=== PATIENT | female | born 1945 | race Caucasian/White ===

== ENCOUNTER 2019-09-23 14:20 | Outpatient (CLI) | payer OTHER, SELFPAY ==
[2019-09-23 14:36] LABS: Basophils Absolute Auto 0.1 K/mm3 (0.0-0.1); Basophils Percent Auto 0.9 % (0.2-1.2); Eosinophils Absolute Auto 0.5 K/mm3 (0-0.3); Eosinophils Percent Auto 7.7 % (0-4.4); Hematocrit 47.9 % (37.0-47.0); Hemoglobin 15.7 g/dL (12.0-15.0); Immature Granulocyte Absolute 0.04 K/mm3 (0.00-0.031); Immature Granulocyte Percent A 0.6 % (0-0.5); Lymphocytes Absolute Auto 1.81 K/mm3 (0.9-3.2); Lymphocytes Percent Auto 27.7 % (18.3-44.2); Mean Corpuscular HGB Conc 32.8 g/dl (32-36); Mean Corpuscular Hemoglobin 32.6 pg (26-34); Mean Corpuscular Volume 99.4 fl (80-100); Mean Platelet Volume 10.3 fl (7.4-10.4); Monocytes Absolute Auto 0.4 K/mm3 (0.1-0.6); Monocytes Percent Auto 6.6 % (2.6-8.5); Neutrophils Absolute Auto 3.7 K/mm3 (1.3-6.7); Neutrophils Percent Auto 56.5 % (45.5-73.1); Platelet Count Result 140 k/mm3 (150-375); Red Blood Count 4.82 M/mm3 (4.2-5.4); Red Cell Distribution Width 14.1 % (11.5-14.5); White Blood Count 6.5 K/mm3 (4.5-10.0)
[2019-09-23 16:36] LABS: Iron 112 ug/dL (37-170)
[2019-09-23 16:40] LABS: Alanine Aminotransferase 25 U/L (4-35); Albumin Level 3.8 g/dL (3.5-5.1); Alkaline Phosphatase 360 U/L (38-126); Aspartate Amino Transferase 41 U/L (14-36); Bilirubin,Total 1.3 mg/dL (0.2-1.3); Blood Urea Nitrogen 9 mg/dL (7-17); Calcium 9.2 mg/dL (8.4-10.2); Carbon Dioxide 25 mmol/L (22-30); Chloride 101 mmol/L (98-107); Estimated Glomerular Filt Rate > 60; Glucose 239 mg/dL (65-105); Sodium 139 mmol/L (137-145)
[2019-09-23 16:51] LABS: Percent Iron Saturation 30 % (20-50)
[2019-09-23 17:50] LABS: Folic Acid 8.1 ng/mL (2.76->20); Vitamin B12 > 1000.0 pg/mL (239-931)
== END 2019-09-23 14:21 | disposition home or self-care (01) ==
LOC: ANHLAB 14:21
PROVIDERS: PCP Internal Medicine; Visit Provider Internal Medicine Hematology & Oncology
DX: D63.8 Anemia in other chronic diseases classified elsewhere (principal)
CPT/HCPCS: 36415; 80053; 82607; 82728; 82746; 83540; 83550; 84443; 85025

== ENCOUNTER 2020-05-08 20:10 | Emergency (ER) | payer OTHER, SELFPAY ==
--- NOTE | ~2020-05-08 | XR_ITS ---
XR chest 2V DATE: 05/08/2020 21:16 INDICATION: Low-grade fever TECHNIQUE: PA and lateral views COMPARISON: 06/09/2019 portable AP chest FINDINGS: Heart size is borderline. No hilar or mediastinal enlargement. No pulmonary infiltrate or c onsolidation, pleural effusion or pulmonary vascular congestion or pneumothorax. There are multiple surgical clips overlie either side of the diaphragmatic hiatus. There is asymmetric widening of the right acromioclavicular joint. There is scoliosis of the thoracic and lumbar spine. There is moderate loss of height and anterior we dging of a thoracolumbar vertebra, approximately T12. There is diffuse osteopenia. IMPRESSION: No active pulmonary disease Reviewed, dictated and finalized at location [facility]. IMPRESSION: No active pulmonary disease
[2020-05-08 20:14] VITALS: BP 163/78; PULSE 72; RESP 20; TEMP 36.2; O2SAT 95
--- NOTE | 2020-05-08 20:29 | ED.FEMALEGU ---
HPI - Female Genitourinary General Chief complaint: Urogenital-Female Stated complaint: fever, uti?? Time Seen by Provider: 05/08/20 20:28 Source: patient Mode of arrival: ambulatory Limitations: no limitations History of Present Illness HPI Narrative: Patient is a 74-year-old female with a history of recurrent urinary tract infection, bladder stimulator who presents for evaluation of low-grade fever. Patient states that she has been feeling unwell since she had the influenza vaccine 6 days prior at her primary care physician's office. Patient states her low-grade fevers have been around 100 Fahrenheit consistently over the past 5 days. She reports mild cough, rhinorrhea that she attributes to seasonal allergies. Patient states she had a negative COVID swab ordered by her primary care physician on . Patient denies any belly pain, nausea, vomiting or diarrhea. She denies rashes. She does report some frequency of urination, she denies dysuria or flank pain. Related Data Home Medications Medication Instructions Recorded Confirmed blood sugar diagnostic #10 each 06/17/19 01/12/20 carbidopa 25 mg-levodopa 100 mg 1 tablet PO TID 06/17/19 01/12/20 tablet lancets 26 gauge #100 each 06/17/19 01/12/20 nystatin 100,000 unit/gram topical 1 applic TOPICAL DAILY 06/17/19 01/12/20 cream ascorbic acid (vitamin C) 500 mg 500 mg PO DAILY 09/17/19 01/12/20 tablet aspirin 325 mg tablet 325 mg PO BID 09/17/19 01/12/20 ferrous sulfate 325 mg (65 mg 325 mg PO BID 09/17/19 01/12/20 iron) tablet mecobalamin (vitamin B12) 5,000 mcg PO 09/17/19 01/12/20 mcg disintegrating tablet Allergies Allergy/AdvReac Type Severity Reaction Status Date / Time clavulanic acid Allergy Intermediate RASH Verified 02/28/19 15:07 amoxicillin Allergy Unknown Verified 09/20/16 10:40 latex Allergy Unknown Verified 09/20/16 10:40 Sulfa (Sulfonamide Allergy Unknown Verified 09/20/16 10:40 Antibiotics) vitamin A Allergy Unknown eyes swell Verified 02/28/19 15:07 Review of Systems Review of Systems: Narrative: CONSTITUTIONAL: Reports fever ENT: Reports rhinorrhea and congestion CARDIOVASCULAR: Denies chest pain, palpitations, or edema. RESPIRATORY: Denies cough or dyspnea. GASTROINTESTINAL: Denies abdominal pain, nausea, vomiting, or diarrhea. GENITOURINARY: Denies dysuria or hematuria. Reports urinary frequency. SKIN: Denies rash or itching. MUSCULOSKELETAL: Denies back pain, joint pain, or myalgia. NEUROLOGIC: Denies headache, numbness, or weakness. [facility] Past Medical History Medical History (Updated 05/08/20 @ 22:16 by Rosie Donald MD) Anemia Bilateral primary osteoarthritis of knee Diabetes Hypertension Hypothyroidism Pancytopenia Stroke, hemorrhagic Surgical History Surgical History H/O rotator cuff surgery (~10/2009) Right H/O: hysterectomy History of partial gastrectomy History of tonsillectomy (~1950) Status post closed fracture of right femur (~1982) treated with femoral cruzito at [place] Family History Family History Sibling Family history of bipolar disorder Mother Family history of hypothyroidism Father Family history of hypothyroidism Other Cerebrovascular accident Depression Diabetes mellitus Family history of alcoholism Family history of arthritis Family history of attention deficit hyperactivity disorder (ADHD) Family history of blood dyscrasia Family history of congestive heart failure Family history of thyroid disease Social History Social History Smoking status: Never smoker Second hand tobacco smoke exposure: No Alcohol intake: never Additional living arrangements comments: Exam Narrative: Exam Narrative: GENERAL: Awake, alert, conversant HEAD: Normocephalic, atraumatic. EYES: PERRLA and E
[2020-05-08 20:56] LABS: Add Urine Microscopic? YES; Amorphous Sediment Urine Few; Appearance Urine Cloudy (Clear); Bacteria Urine 2+ /hpf; Bilirubin Urine Negative (Negative); Color Urine Amber (Yellow); Glucose Urine UA 1+ mg/dL (Negative); Ketones Urine Trace mg/dL (Negative); Leukocyte Esterase Ur 1+ LEU/UL (Negative); Mucus Urine Heavy /lpf; Nitrate Urine Positive (Negative); Protein Urine 1+ mg/dL (Negative); Squamous Epithelial Cell Urine Moderate /hpf (Few); WBC Urine >75 /hpf
[2020-05-08 20:57] LABS: Blood Urine Negative (Negative)
[2020-05-08 21:56] LABS: Alanine Aminotransferase 30 U/L (4-35); Albumin Level 3.8 g/dL (3.5-5.1); Alkaline Phosphatase 241 U/L (38-126); Anion Gap 10 mmol/L (8-16); Aspartate Amino Transferase 52 U/L (14-36); Bilirubin,Total 1.8 mg/dL (0.2-1.3); Blood Urea Nitrogen 10 mg/dL (7-17); Calcium 9.2 mg/dL (8.4-10.2); Carbon Dioxide 24 mmol/L (22-30); Chloride 105 mmol/L (98-107); Estimated Glomerular Filt Rate > 60; Glucose 247 mg/dL (65-105); Potassium 4.1 mmol/L (3.4-5.0); Sodium 139 mmol/L (137-145)
[2020-05-08 22:10] VITALS: BP 169/60; PULSE 66; RESP 17; O2SAT 95
[2020-05-08 22:29] VITALS: BP 179/67; PULSE 66; RESP 18; TEMP 36.7; O2SAT 95
== END 2020-05-08 22:31 | disposition home or self-care (01) ==
PROVIDERS: Emergency Medicine; Emergency Provider Emergency Medicine; PCP Internal Medicine
DX: N39.0 Urinary tract infection, site not specified (principal); Z79.82 Long term (current) use of aspirin; D64.9 Anemia, unspecified; M17.10 Unilateral primary osteoarthritis, unspecified knee; E11.9 Type 2 diabetes mellitus without complications; I10 Essential (primary) hypertension; E03.9 Hypothyroidism, unspecified; Z86.73 Personal history of transient ischemic attack (TIA), and cerebral infarction without residual deficits; Z90.3 Acquired absence of stomach [part of]
CPT/HCPCS: 36415; 71046; 80053; 81001; 87077; 87086; 87088; 87186; 99283

== ENCOUNTER 2020-06-28 17:00 | Outpatient (CLI) | payer OTHER, SELFPAY ==
[2020-06-28 17:50] LABS: Basophils Percent Auto 0.6 % (0.2-1.2); Eosinophils Absolute Auto 0.2 K/mm3 (0-0.3); Eosinophils Percent Auto 4.4 % (0-4.4); Hematocrit 46.5 % (37.0-47.0); Hemoglobin 16.4 g/dL (12.0-15.0); Immature Granulocyte Absolute 0.01 K/mm3 (0.00-0.031); Immature Granulocyte Percent A 0.2 % (0-0.5); Immature Platelet Fraction Pct 6.4 % (0.9-11.2); Lymphocytes Absolute Auto 1.77 K/mm3 (0.9-3.2); Lymphocytes Percent Auto 35.1 % (18.3-44.2); Mean Corpuscular HGB Conc 35.3 g/dl (32-36); Mean Corpuscular Hemoglobin 33.3 pg (26-34); Mean Corpuscular Volume 94.5 fl (80-100); Mean Platelet Volume 11.1 fl (7.4-10.4); Monocytes Absolute Auto 0.2 K/mm3 (0.1-0.6); Monocytes Percent Auto 4.8 % (2.6-8.5); Neutrophils Absolute Auto 2.8 K/mm3 (1.3-6.7); Neutrophils Percent Auto 54.9 % (45.5-73.1); Platelet Count Result 77 k/mm3 (150-375); Red Blood Count 4.92 M/mm3 (4.2-5.4); Red Cell Distribution Width 12.3 % (11.5-14.5)
[2020-06-28 18:00] LABS: Anion Gap 5 mmol/L (8-16); Blood Urea Nitrogen 5 mg/dL (7-17); Calcium 8.8 mg/dL (8.4-10.2); Carbon Dioxide 28 mmol/L (22-30); Chloride 103 mmol/L (98-107); Estimated Glomerular Filt Rate > 60; Glucose 345 mg/dL (65-105); Potassium 3.9 mmol/L (3.4-5.0); Sodium 136 mmol/L (137-145)
[2020-06-28 18:44] LABS: Iron 137 ug/dL (37-170)
[2020-06-28 18:53] LABS: Percent Iron Saturation 46 % (20-50)
[2020-06-28 19:09] LABS: Folic Acid 7.2 ng/mL (2.76->20); Vitamin B12 > 1000.0 pg/mL (239-931)
== END 2020-06-28 17:01 | disposition home or self-care (01) ==
PROVIDERS: PCP Internal Medicine; Visit Provider Internal Medicine Hematology & Oncology
DX: D50.9 Iron deficiency anemia, unspecified (principal); D61.818 Other pancytopenia
CPT/HCPCS: 36415; 80048; 82607; 82728; 82746; 83540; 83550; 85025; 85055

== ENCOUNTER 2020-08-23 11:07 | Emergency (ER) | payer OTHER, SELFPAY ==
--- NOTE | ~2020-08-23 | XR_ITS ---
XR shoulder RT min 2V DATE: 08/23/2020 11:37 INDICATION: Fall. Right shoulder pain TECHNIQUE: 3 views COMPARISON: 01/19/2017 right shoulder FINDINGS: There is comminuted fracture the proximal right humerus including fracture of the greater t uberosity and transverse surgical neck fracture. Diffuse osteopenia. There is chronic widening at the right acromioclavicular joint. No dislocation at the glenohumeral prema int. IMPRESSION: Comminuted proximal right humeral fracture including fracture of the greater tuberosity a nd transverse surgical neck fracture Osteopenia Reviewed, dictated and finalized at location A. [employer] IMPRESSION: Comminuted proximal right humeral fracture including fracture of th e greater tuberosity and transverse surgical neck fracture Osteopenia
[2020-08-23 11:09] VITALS: BP 148/96; PULSE 78; RESP 16; TEMP 37; O2SAT 96
--- NOTE | 2020-08-23 11:15 | PC.NURSE ---
patient here after ground level fall. see initial notes. alert. oriented. denies head injury. denies LOC. just missed a step. assessments documented.
--- NOTE | 2020-08-23 11:43 | ED.UPPEXIN ---
HPI - Extremity Injury (Upper) General Chief Complaint: Extremity Injury, Upper Stated Complaint: R shoulder pain after fall Time Seen by Provider: 08/23/20 11:08 History of Present Illness HPI narrative: 74 yo female presents to the ED for a shoulder injury. SHe tripped over a small step and fell forward onto outstretched right hand. She had instatn and severe pain in her right shoulder. She is not able to to move that shoulder. the pain radiates down past the elbow. Distal motor and sensory intact. She had previous rotator cuff repair on that shoulder 12 years ago. She does not believe that she hit her head. No new neck pain, back pain, hip pain. No LOC, weakness, numbness confusion. Related Data Home Medications Medication Instructions Recorded Confirmed blood sugar diagnostic #10 each 06/17/19 07/07/20 lancets 26 gauge #100 each 06/17/19 07/07/20 ascorbic acid (vitamin C) 500 mg 500 mg PO DAILY 09/17/19 07/07/20 tablet ferrous sulfate 325 mg (65 mg 325 mg PO BID 09/17/19 07/07/20 iron) tablet Allergies Allergy/AdvReac Type Severity Reaction Status Date / Time clavulanic acid Allergy Intermediate RASH Verified 02/28/19 15:07 amoxicillin Allergy Unknown Verified 09/20/16 10:40 latex Allergy Unknown Verified 09/20/16 10:40 Sulfa (Sulfonamide Allergy Unknown Verified 09/20/16 10:40 Antibiotics) vitamin A Allergy Unknown eyes swell Verified 02/28/19 15:07 Review of Systems Review of Systems: All systems reviewed & are unremarkable except as noted in HPI and below Constitutional: Constitutional: Denies fever(s) and Denies weakness ENT: Denies dizziness Cardiovascular: Cardiovascular: Denies chest pain Respiratory: Respiratory: Denies dyspnea Gastrointestinal: Gastrointestinal: Denies nausea and Denies vomiting Genitourinary: Genitourinary: Denies dysuria Musculoskeletal: Musculoskeletal: Reports back pain Neurologic: Denies confusion, Denies dizziness and Denies weakness Hematologic/Lymphatic: Hematologic/Lymphatic: Denies easy bleeding PMFSH Past Medical History Medical History Anemia Bilateral primary osteoarthritis of knee Diabetes Hypertension Hypothyroidism Pancytopenia Stroke, hemorrhagic Surgical History Surgical History H/O rotator cuff surgery (~10/2009) Right H/O: hysterectomy History of partial gastrectomy History of tonsillectomy (~1950) Status post closed fracture of right femur (~1982) treated with femoral cruzito at [place] Family History Family History Sibling Family history of bipolar disorder Mother Family history of hypothyroidism Father Family history of hypothyroidism Other Cerebrovascular accident Depression Diabetes mellitus Family history of alcoholism Family history of arthritis Family history of attention deficit hyperactivity disorder (ADHD) Family history of blood dyscrasia Family history of congestive heart failure Family history of thyroid disease Social History Social History Smoking status: Never smoker Second hand tobacco smoke exposure: No Alcohol intake: never Additional living arrangements comments: Exam Const: General: healthy appearing, no acute distress and alert Orientation/consciousness: patient oriented x3 HENMT: Head: normal to inspection, no contusions and no lacerations Eyes: Pupils: Equal, round and reactive pupils present EOM: EOMs intact bilaterally Neck: Neck: normal visual inspection Chest: Chest palpation & inspection: no tenderness Resp: Effort & Inspection: normal respiratory effort Auscultation: clear to auscultation bilaterally Cardio: Rate: regular rate Rhythm: regular rhythm Skin: General skin exam: normal color Wounds: no wounds Neuro: Gener
[2020-08-23] MEDS: HYDROcodone/acetaminophen (*CRX) 5-325 MG TABLET 2 TAB PO (12:10)
--- NOTE | 2020-08-23 12:17 | PC.NURSE ---
patient medicated for pain as ordered. reviewed current orders with patient and friend in the room. patient needs a new shirt. also has order for shoulder immobilizer. will wait for pain med to start working.
[2020-08-23 12:43] VITALS: BP 146/53; PULSE 72; RESP 16; O2SAT 96
== END 2020-08-23 12:49 | disposition home or self-care (01) ==
PROVIDERS: Emergency Provider Emergency Medicine; PCP Internal Medicine
DX: S42.251A Displaced fracture of greater tuberosity of right humerus, initial encounter for closed fracture (principal); S42.211A Unspecified displaced fracture of surgical neck of right humerus, initial encounter for closed fracture; D64.9 Anemia, unspecified; M17.0 Bilateral primary osteoarthritis of knee; E11.9 Type 2 diabetes mellitus without complications; I10 Essential (primary) hypertension; E03.9 Hypothyroidism, unspecified; Z86.73 Personal history of transient ischemic attack (TIA), and cerebral infarction without residual deficits; Z79.4 Long term (current) use of insulin; M85.811 Other specified disorders of bone density and structure, right shoulder; W18.09XA Striking against other object with subsequent fall, initial encounter
CPT/HCPCS: 73030; 99284; A9270

== ENCOUNTER 2020-09-23 15:08 | Outpatient (CLI) | payer OTHER, MEDICARE, SELFPAY | END 2020-09-23 15:09 | disposition home or self-care (01) | LOC: ANHCOVIDVC 15:08 | PROVIDERS: PCP Internal Medicine | DX: Z23 Encounter for immunization (principal) | CPT/HCPCS: 0001A; 91300 ==

== ENCOUNTER 2020-09-26 22:19 | Emergency (ER) | payer OTHER, SELFPAY ==
[2020-09-26 22:22] VITALS: BP 142/53; PULSE 69; RESP 20; TEMP 36.8; O2SAT 97
[2020-09-26 23:05] LABS: Lactic Acid Reflex 3.2 mmol/L (0.7-2.1)
--- NOTE | 2020-09-26 23:58 | ED.EXTPRO ---
HPI - Extremity Problem General Chief complaint: Extremity Problem,Nontraumatic Stated complaint: R arm redness/ swelling Time Seen by Provider: 09/26/20 23:35 History of Present Illness HPI Narrative: Redenss and swelling to the right upper arm for the past 2 days. She broken proximal humerus 1 month ago and she has had her arm in an immobilizer. The redness developed in the area where it makes contact with her skin. The rash is painful and also itches. SHe does have some minor scratches to the area, no significant wounds. She has tried OTC allergy treatments without any improvement. No fever, weakness, numbness, CP, SOB. Related Data Home Medications Medication Instructions Recorded Confirmed blood sugar diagnostic #10 each 06/17/19 07/07/20 lancets 26 gauge #100 each 06/17/19 07/07/20 ascorbic acid (vitamin C) 500 mg 500 mg PO DAILY 09/17/19 07/07/20 tablet ferrous sulfate 325 mg (65 mg 325 mg PO BID 09/17/19 07/07/20 iron) tablet Allergies Allergy/AdvReac Type Severity Reaction Status Date / Time clavulanic acid Allergy Intermediate RASH Verified 02/28/19 15:07 amoxicillin Allergy Unknown Verified 09/20/16 10:40 latex Allergy Unknown Verified 09/20/16 10:40 Sulfa (Sulfonamide Allergy Unknown Verified 09/20/16 10:40 Antibiotics) vitamin A Allergy Unknown eyes swell Verified 02/28/19 15:07 Review of Systems Review of Systems: All systems reviewed & are unremarkable except as noted in HPI and below Constitutional: Constitutional: Denies chills and Denies fever(s) Eyes: Eyes: Reports no additional eye complaints ENT: Reports system reviewed and no additional complaints, except as documented Cardiovascular: Cardiovascular: Denies chest pain Respiratory: Respiratory: Denies dyspnea Gastrointestinal: Gastrointestinal: Denies abdominal pain, Denies nausea and Denies vomiting Genitourinary: Genitourinary: Reports no additional female genitourinary complaints Musculoskeletal: Musculoskeletal: Denies back pain Integumentary/Breasts: Skin/Breast: Reports pruritus, Reports erythema and Reports rash Neurologic: Denies confusion, Denies dizziness and Denies weakness PMF Past Medical History Medical History (Updated 09/28/20 @ 00:00 by Background Daemon) Anemia Bilateral primary osteoarthritis of knee Diabetes Hypertension Hypothyroidism Pancytopenia Stroke, hemorrhagic Surgical History Surgical History H/O rotator cuff surgery (~10/2009) Right H/O: hysterectomy History of partial gastrectomy History of tonsillectomy (~1950) Status post closed fracture of right femur (~1982) treated with femoral cruzito at [place] Family History Family History Sibling Family history of bipolar disorder Mother Family history of hypothyroidism Father Family history of hypothyroidism Other Cerebrovascular accident Depression Diabetes mellitus Family history of alcoholism Family history of arthritis Family history of attention deficit hyperactivity disorder (ADHD) Family history of blood dyscrasia Family history of congestive heart failure Family history of thyroid disease Social History Social History Smoking status: Never smoker Second hand tobacco smoke exposure: No Alcohol intake: never Additional living arrangements comments: Gender identity (if verbalized by the patient): Female Exam Const: General: no acute distress and alert Orientation/consciousness: patient oriented x3 HENMT: Head: normal to inspection Neck: Neck: normal visual inspection Chest: Chest palpation & inspection: normal inspection of the chest Resp: Effort & Inspection: normal respiratory effort Auscultation: clear to auscultation bilaterally Cardio: Rate: regular rate Rhythm: regular rhythm Skin: Other: Erythem
[2020-09-27 00:21] LABS: Basophils Absolute Auto 0.1 K/mm3 (0.0-0.1); Basophils Percent Auto 0.9 % (0.2-1.2); Eosinophils Absolute Auto 0.6 K/mm3 (0-0.3); Eosinophils Percent Auto 11.6 % (0-4.4); Hematocrit 47.2 % (37.0-47.0); Immature Granulocyte Absolute 0.01 K/mm3 (0.00-0.031); Immature Granulocyte Percent A 0.2 % (0-0.5); Immature Platelet Fraction Pct 8.1 % (0.9-11.2); Lymphocytes Absolute Auto 1.69 K/mm3 (0.9-3.2); Lymphocytes Percent Auto 30.6 % (18.3-44.2); Mean Corpuscular HGB Conc 33.9 g/dl (32-36); Mean Corpuscular Hemoglobin 34.2 pg (26-34); Mean Corpuscular Volume 100.9 fl (80-100); Mean Platelet Volume 11.6 fl (7.4-10.4); Monocytes Absolute Auto 0.4 K/mm3 (0.1-0.6); Monocytes Percent Auto 7.1 % (2.6-8.5); Neutrophils Absolute Auto 2.7 K/mm3 (1.3-6.7); Neutrophils Percent Auto 49.6 % (45.5-73.1); Platelet Count Result 73 k/mm3 (150-375); Red Blood Count 4.68 M/mm3 (4.2-5.4); Red Cell Distribution Width 12.6 % (11.5-14.5); White Blood Count 5.5 K/mm3 (4.5-10.0)
[2020-09-27] MEDS: DOXYCYCLINE HYCLATE 100 MG TABLET PO (01:08)
[2020-09-27 01:14] LABS: Alanine Aminotransferase 21 U/L (4-35); Albumin Level 2.8 g/dL (3.5-5.1); Alkaline Phosphatase 201 U/L (38-126); Anion Gap 7 mmol/L (8-16); Aspartate Amino Transferase 54 U/L (14-36); Blood Urea Nitrogen 8 mg/dL (7-17); Calcium 8.7 mg/dL (8.4-10.2); Carbon Dioxide 24 mmol/L (22-30); Chloride 104 mmol/L (98-107); Estimated CRCL calculation 120 ml/min; Estimated Glomerular Filt Rate > 60; Glucose 283 mg/dL (65-105); Potassium 4.4 mmol/L (3.4-5.0); Sodium 135 mmol/L (137-145)
[2020-09-27 01:36] VITALS: BP 139/73; PULSE 73; RESP 16; O2SAT 96
[2020-09-27 01:49] LABS: Reflex Lactic Acid Yes or No Add Lactic
== END 2020-09-27 01:39 | disposition home or self-care (01) ==
PROVIDERS: Emergency Provider Emergency Medicine; PCP Internal Medicine
DX: L03.113 Cellulitis of right upper limb (principal); D64.9 Anemia, unspecified; M17.0 Bilateral primary osteoarthritis of knee; E11.9 Type 2 diabetes mellitus without complications; I10 Essential (primary) hypertension; E03.9 Hypothyroidism, unspecified; Z86.73 Personal history of transient ischemic attack (TIA), and cerebral infarction without residual deficits; Z90.3 Acquired absence of stomach [part of]
CPT/HCPCS: 36415; 80053; 83605; 85025; 85055; 87040; 99283; A9270

== ENCOUNTER 2020-10-14 15:10 | Outpatient (CLI) | payer OTHER, MEDICARE, SELFPAY | END 2020-10-14 15:11 | disposition home or self-care (01) | LOC: ANHCOVIDVC 15:10 | PROVIDERS: PCP Internal Medicine | DX: Z23 Encounter for immunization (principal) | CPT/HCPCS: 0002A; 91300 ==

== ENCOUNTER 2020-10-18 17:33 | Outpatient (CLI) | payer OTHER, SELFPAY ==
--- NOTE | ~2020-10-18 | XR_ITS ---
EXAMINATION: XR sacrum coccyx min 2V DATE: 10/18/2020 18:14 INDICATION: Overactive bladder. TECHNIQUE: 3 views of the sacrum and coccyx were obtained. COMPARISON: Sacrum and coccyx radiographs 04/10/2016 FINDINGS: Bone alignment is normal. No fracture. There is severe lumbar spondylosis. There is an elec trode in right S3 neural foramen. There is internal fixation of right femur. IMPRESSION: 1. Electrode in right S3 neural foramen. Reviewed, dictated and finalized at location A.
== END 2020-10-18 17:34 | disposition home or self-care (01) ==
PROVIDERS: PCP Internal Medicine; Visit Provider Nurse Practitioner Adult Health
DX: N32.81 Overactive bladder (principal); M47.816 Spondylosis without myelopathy or radiculopathy, lumbar region; Z96.9 Presence of functional implant, unspecified
CPT/HCPCS: 72220

== ENCOUNTER 2020-10-26 23:14 | Emergency (ER) | payer OTHER, SELFPAY ==
[2020-10-26 23:18] VITALS: BP 104/75; PULSE 78; RESP 18; TEMP 36.4; O2SAT 97
[2020-10-26] MEDS: PANTOPRAZOLE SODIUM IV 40 MG VIAL IV PUSH (23:54)
[2020-10-27 00:13] VITALS: BP 146/54; PULSE 73
[2020-10-27 00:16] VITALS: BP 166/67; PULSE 78
[2020-10-27 00:17] VITALS: BP 155/60; PULSE 90
[2020-10-27 00:33] VITALS: BP 141/50; PULSE 74; RESP 16; O2SAT 95
--- NOTE | 2020-10-27 01:00 | ED.NAVMDI ---
HPI - Nausea/Vomiting/Diarrhea General Chief complaint: Nausea/Vomiting/Diarrhea Stated complaint: throwing up blood x 15 Time Seen by Provider: 10/26/20 23:15 History of Present Illness HPI Narrative: Patient is a 74-year-old female who presents ER with nausea and vomiting. Patient has been having nausea for several weeks. She has been on antibiotics for cellulitis and for UTI. Apparently today patient began having emesis. Prior to coming in she had one episode where she vomited up some bright red blood. Is in a small quantity approximately a tablespoon or less. Prior to this she had had a small amount of dark emesis with the appearance of old blood. She denies coffee ground emesis throughout the day. Denies history of GI bleed. She is not on any blood thinners. No chest pain or chest pressure. She has not been taking her iron over the last couple weeks. Patient has been taking meloxicam. Related Data Home Medications Medication Instructions Recorded Confirmed blood sugar diagnostic #10 each 06/17/19 07/07/20 lancets 26 gauge #100 each 06/17/19 07/07/20 ascorbic acid (vitamin C) 500 mg 500 mg PO DAILY 09/17/19 07/07/20 tablet ferrous sulfate 325 mg (65 mg 325 mg PO BID 09/17/19 07/07/20 iron) tablet Allergies Allergy/AdvReac Type Severity Reaction Status Date / Time clavulanic acid Allergy Intermediate RASH Verified 02/28/19 15:07 amoxicillin Allergy Unknown Rash Verified 10/26/20 23:20 latex Allergy Unknown Rash Verified 10/26/20 23:20 Sulfa (Sulfonamide Allergy Unknown Rash Verified 10/26/20 23:20 Antibiotics) vitamin A Allergy Unknown eyes swell Verified 02/28/19 15:07 Review of Systems Review of Systems: All systems reviewed & are unremarkable except as noted in HPI and below Constitutional: Constitutional: Denies chills, Denies fever(s) and Denies weakness ENT: Denies nasal congestion and Denies sore throat Cardiovascular: Cardiovascular: Denies chest pain and Denies radiating jaw, neck or arm pain Gastrointestinal: Gastrointestinal: Denies abdominal pain, Denies constipation, Denies diarrhea, Reports nausea and Reports vomiting Comments: Hematemesis Neurologic: Denies syncope and Denies weakness [facility] Past Medical History Medical History (Updated 10/27/20 @ 01:02 by Lukas Zaragoza MD) Anemia Bilateral primary osteoarthritis of knee Diabetes Hypertension Hypothyroidism Pancytopenia Stroke, hemorrhagic Surgical History Surgical History H/O rotator cuff surgery (~10/2009) Right H/O: hysterectomy History of partial gastrectomy History of tonsillectomy (~1950) Status post closed fracture of right femur (~1982) treated with femoral cruzito at [place] Family History Family History Sibling Family history of bipolar disorder Mother Family history of hypothyroidism Father Family history of hypothyroidism Other Cerebrovascular accident Depression Diabetes mellitus Family history of alcoholism Family history of arthritis Family history of attention deficit hyperactivity disorder (ADHD) Family history of blood dyscrasia Family history of congestive heart failure Family history of thyroid disease Social History Social History Smoking status: Never smoker Second hand tobacco smoke exposure: No Alcohol intake: never Additional living arrangements comments: Gender identity (if verbalized by the patient): Female Sexual Orientation (if Verbalized by the Patient): Straight or Heterosexual Exam Narrative: Exam Narrative: GENERAL: Well-appearing, well-nourished, and in no acute distress. HEAD: Normocephalic, atraumatic. CHEST: Clear to auscultation. No respiratory distress. HEART: Regular rate and rhythm. Harsh murmur in all quadrants most notable at the apex. Normal peripheral p
[2020-10-27 01:18] VITALS: BP 146/87; PULSE 81; RESP 16; TEMP 36.7; O2SAT 95
== END 2020-10-27 01:19 | disposition home or self-care (01) ==
PROVIDERS: Emergency Provider Emergency Medicine; PCP Internal Medicine
DX: K92.2 Gastrointestinal hemorrhage, unspecified (principal); D64.9 Anemia, unspecified; M17.0 Bilateral primary osteoarthritis of knee; E11.9 Type 2 diabetes mellitus without complications; I10 Essential (primary) hypertension; E03.9 Hypothyroidism, unspecified; Z86.73 Personal history of transient ischemic attack (TIA), and cerebral infarction without residual deficits; Z90.3 Acquired absence of stomach [part of]; Z79.84 Long term (current) use of oral hypoglycemic drugs
CPT/HCPCS: 96374; 99284; C9113

== ENCOUNTER 2021-05-26 20:44 | Emergency (ER) | payer OTHER, SELFPAY ==
--- NOTE | ~2021-05-26 | CT_ITS ---
EXAMINATION: CT facial bones wo con DATE: 05/26/2021 21:36 INDICATION: Ground-level fall 2 days ago. Bilateral black eyes and bruising of right frontal bone TECHNIQUE: Computed tomography (CT) of the facial bones and maxillofacial region was performed withou t intravenous contrast. Automated exposure control and iterative reconstruction technique were employ ed. Exam dose: 284.06 mGy-cm total exam DLP. COMPARISON: None. FINDINGS: The frontozygomatic sutures and orbital rims and velazquez are intact. The zygomatic arches are intact. Normal alignment at the temporomandibular joints. No facial or mandible fracture. The nasal bones are intact. Incidentally noted is reversal of cervical curvature and multilevel degenerative disc disease of the cervical spine, particularly at C4-5, C5-6 and C6-7, moderately prominent at C3-4. There is degenerat danny change at the apophyseal and uncovertebral joint as well.. There is minimal anterolisthesis at C3 -4 and C4-5. IMPRESSION: No facial fracture is detected Reviewed, dictated and finalized at [facility]. Reviewed, dictated and finalized at location A.
--- NOTE | ~2021-05-26 | CT_ITS ---
EXAMINATION: CT brain wo con DATE: 05/26/2021 21:35 INDICATION: Ground-level fall 2 days ago. Bilateral black eyes. Right frontal bruising. TECHNIQUE: Computed tomography (CT) of the head was performed without intravenous contrast. The mA wa s adjusted according to patient size. Iterative reconstruction technique was employed. Exam dose: 60 5.33 mGy-cm total exam DLP. COMPARISON: 06/09/2019 CT brain Unenhanced CTA brain carotid FINDINGS: No skull fracture or bone destruction. With the exception of mild soft tissue thickening of the left sphenoid sinus, the included paranasal sinuses and the mastoid air cells are normally devel oped and aerated. There is cerebral cortical atrophy preferentially involving the frontal lobes. There is moderate cere bellar atrophy. Bilateral carotid siphon internal carotid artery calcification. There is nonspecific diminished atten uation of the cerebral white matter, likely due to chronic small vessel ischemic changes. Normal ventricular size. No intracranial mass lesion or hemorrhage or recent cerebrovascular accident is detected. No midline shift or mass effect. No subdural or epidural hematoma is detected. IMPRESSION: No acute intracranial finding or skull fracture Reviewed, dictated and finalized at [facility]. Reviewed, dictated and finalized at location A.
[2021-05-26 20:47] VITALS: BP 165/77; PULSE 84; RESP 18; TEMP 37.3; O2SAT 94
--- NOTE | 2021-05-26 21:15 | ED.FALL ---
HPI - Fall General Chief Complaint: Fall Stated Complaint: fall, head injury Time Seen by Provider: 05/26/21 21:11 Source: RN notes reviewed History of Present Illness HPI Narrative: Patient presents to emergency department from home for a fall. Patient states that early Saturday morning she tripped over a blanket and fell she states she struck the right side of her face and head she did not have loss of consciousness at that time states she continues to have a headache as well as bruising over her right forehead and bilateral orbits she denies any blood thinner use she denies any vision changes numbness or tingling in extremities chest pain shortness of breath or any other injury states she does not need any pain medication at this time Related Data Home Medications Medication Instructions Recorded Confirmed blood sugar diagnostic #10 each 06/17/19 07/07/20 lancets 26 gauge #100 each 06/17/19 07/07/20 ascorbic acid (vitamin C) 500 mg 500 mg PO DAILY 09/17/19 07/07/20 tablet ferrous sulfate 325 mg (65 mg 325 mg PO BID 09/17/19 07/07/20 iron) tablet Allergies Allergy/AdvReac Type Severity Reaction Status Date / Time clavulanic acid Allergy Intermediate RASH Verified 05/26/21 22:02 amoxicillin Allergy Unknown Rash Verified 05/26/21 22:02 latex Allergy Unknown Rash Verified 05/26/21 22:02 Sulfa (Sulfonamide Allergy Unknown Rash Verified 05/26/21 22:02 Antibiotics) vitamin A Allergy Unknown eyes swell Verified 05/26/21 22:02 Review of Systems Review of Systems: Gen.: Denies fevers or chills Eyes: Denies eye pain or visual change ENT: Denies congestion Respiratory: Denies shortness of breath CV: Denies chest pain or palpitations GI: Denies abdominal pain nausea, emesis or diarrhea Musculoskeletal: Denies back pain or muscle pain Neuro: Denies numbness, tingling, weakness or focal weakness Skin: Denies rash Except as documented, all other systems reviewed and negative [facility] Past Medical History Medical History (Updated 05/26/21 @ 22:13 by Anton Waldron DO) Anemia Bilateral primary osteoarthritis of knee Diabetes Hypertension Hypothyroidism Pancytopenia Stroke, hemorrhagic Surgical History Surgical History H/O rotator cuff surgery (~10/2009) Right H/O: hysterectomy History of partial gastrectomy History of tonsillectomy (~1950) Status post closed fracture of right femur (~1982) treated with femoral cruzito at [place] Family History Family History Sibling Family history of bipolar disorder Mother Family history of hypothyroidism Father Family history of hypothyroidism Other Cerebrovascular accident Depression Diabetes mellitus Family history of alcoholism Family history of arthritis Family history of attention deficit hyperactivity disorder (ADHD) Family history of blood dyscrasia Family history of congestive heart failure Family history of thyroid disease Social History Social History Smoking status: Never smoker Second hand tobacco smoke exposure: No Alcohol intake: never Additional living arrangements comments: Gender identity (if verbalized by the patient): Female Sexual Orientation (if Verbalized by the Patient): Straight or Heterosexual Exam Narrative: APPEARANCE: No acute distress, nontoxic, resting in bed EYES: EOMI HEENT: Normocephalic, tender palpation over right forehead with swelling ecchymosis present ecchymosis over the bilateral upper and lower orbits with tenderness over the right zygomatic arch and the right superior and inferior orbit TMs clear bilaterally nares patent full range of motion of jaw without pain Neck supple, no midline tender to palpation full range of motion of the neck without pain RESPIRATORY: No respiratory distress Clear to auscultation bilaterally
[2021-05-26 21:19] VITALS: BP 153/66; PULSE 86; RESP 18; RESP 21; O2SAT 92; O2SAT 94
[2021-05-26 22:40] VITALS: BP 154/74; PULSE 74; RESP 14; O2SAT 97
== END 2021-05-26 22:40 | disposition home or self-care (01) ==
PROVIDERS: Emergency Provider Emergency Medicine; PCP Internal Medicine
DX: S00.93XA Contusion of unspecified part of head, initial encounter (principal); D64.9 Anemia, unspecified; E11.9 Type 2 diabetes mellitus without complications; I10 Essential (primary) hypertension; E03.9 Hypothyroidism, unspecified; M17.0 Bilateral primary osteoarthritis of knee; Z86.73 Personal history of transient ischemic attack (TIA), and cerebral infarction without residual deficits; Z90.3 Acquired absence of stomach [part of]; Z79.84 Long term (current) use of oral hypoglycemic drugs; W18.09XA Striking against other object with subsequent fall, initial encounter
CPT/HCPCS: 70450; 70486; 99284

== ENCOUNTER 2021-06-01 12:32 | Emergency (ER) | payer OTHER, SELFPAY ==
[2021-06-01 12:38] VITALS: BP 153/50; PULSE 80; RESP 18; TEMP 36.3; O2SAT 95
[2021-06-01 12:58] LABS: Basophils Absolute Auto 0.1 K/mm3 (0.0-0.1); Basophils Percent Auto 0.8 % (0.2-1.2); Eosinophils Absolute Auto 0.4 K/mm3 (0-0.3); Hematocrit 36.6 % (37.0-47.0); Hemoglobin 12.4 g/dL (12.0-15.0); Immature Granulocyte Absolute 0.01 K/mm3 (0.00-0.031); Immature Granulocyte Percent A 0.2 % (0-0.5); Immature Platelet Fraction Pct 5.3 % (0.9-11.2); Lymphocytes Percent Auto 33.6 % (18.3-44.2); Mean Corpuscular HGB Conc 33.9 g/dl (32-36); Mean Corpuscular Hemoglobin 33.5 pg (26-34); Mean Corpuscular Volume 98.9 fl (80-100); Monocytes Absolute Auto 0.4 K/mm3 (0.1-0.6); Monocytes Percent Auto 7.4 % (2.6-8.5); Neutrophils Absolute Auto 3.1 K/mm3 (1.3-6.7); Platelet Count Result 118 k/mm3 (150-375); Red Cell Distribution Width 13.5 % (11.5-14.5)
[2021-06-01 13:10] LABS: Alanine Aminotransferase 28 U/L (4-35); Albumin Level 3.4 g/dL (3.5-5.1); Alkaline Phosphatase 151 U/L (38-126); Anion Gap 8 mmol/L (8-16); Aspartate Amino Transferase 45 U/L (14-36); Bilirubin,Total 1.8 mg/dL (0.2-1.3); Blood Urea Nitrogen 21 mg/dL (7-17); Calcium 8.9 mg/dL (8.4-10.2); Carbon Dioxide 22 mmol/L (22-30); Chloride 112 mmol/L (98-107); Estimated CRCL calculation 103 ml/min; Estimated Glomerular Filt Rate > 60; Glucose 228 mg/dL (65-110); Lipase 48 U/L (23-300); Potassium 3.4 mmol/L (3.4-5.0); Sodium 142 mmol/L (137-145)
[2021-06-01 14:59] VITALS: BP 157/65; PULSE 83; RESP 16; O2SAT 95
[2021-06-01] MEDS: ONDANSETRON INJ 4 MG/2 ML VIAL IV PUSH (15:39)
[2021-06-01] MEDS: SODIUM CHLORIDE 0.9% IV 1,000 ML 999 ML IV CONT (15:39)
--- NOTE | 2021-06-01 15:59 | ED.NAVMDI ---
HPI - Nausea/Vomiting/Diarrhea General Chief complaint: Nausea/Vomiting/Diarrhea Stated complaint: n/v/d, weak Time Seen by Provider: 06/01/21 15:09 Source: patient History of Present Illness HPI Narrative: Patient presents with nausea vomiting and diarrhea. Reports symptoms present for the past couple days. This started after she ate in the crib from [employer]. Her also ate at [employer] and got sick however symptoms improved and her symptoms have persisted. She was concerned because last night she had noted dark stools and dark emesis. Patient reports she has been taking Pepto-Bismol since initiation of her symptoms. Reports she has not had dark stools or dark emesis today. She denies fevers she denies recent antibiotics. She reports some mild abdominal cramping Related Data Home Medications Medication Instructions Recorded Confirmed blood sugar diagnostic #10 each 06/17/19 07/07/20 lancets 26 gauge #100 each 06/17/19 07/07/20 ascorbic acid (vitamin C) 500 mg 500 mg PO DAILY 09/17/19 07/07/20 tablet ferrous sulfate 325 mg (65 mg 325 mg PO BID 09/17/19 07/07/20 iron) tablet Allergies Allergy/AdvReac Type Severity Reaction Status Date / Time clavulanic acid Allergy Intermediate RASH Verified 06/01/21 15:11 amoxicillin Allergy Unknown Rash Verified 06/01/21 15:11 latex Allergy Unknown Rash Verified 06/01/21 15:11 Sulfa (Sulfonamide Allergy Unknown Rash Verified 06/01/21 15:11 Antibiotics) vitamin A Allergy Unknown eyes swell Verified 06/01/21 15:11 Review of Systems Review of Systems: CONSTITUTIONAL: Denies fever, chills, or sweats. EYES: Denies visual changes, redness, or discharge. ENT: Denies rhinorrhea, congestion, sore throat, or otalgia. CARDIOVASCULAR: Denies chest pain, palpitations, or edema. RESPIRATORY: Denies cough or dyspnea. GASTROINTESTINAL: Reports nausea vomiting diarrhea and mild abdominal pain GENITOURINARY: Denies dysuria or hematuria. SKIN: Denies rash or itching. MUSCULOSKELETAL: Denies back pain, joint pain, or myalgia. NEUROLOGIC: Denies headache, numbness, dizziness, or weakness. PSYCHIATRIC: Denies anxiety or depression. All systems reviewed & are unremarkable except as noted in HPI and below PMFSH Past Medical History Medical History (Updated 06/01/21 @ 16:38 by Migue Ruano MD) Anemia Bilateral primary osteoarthritis of knee Diabetes Hypertension Hypothyroidism Pancytopenia Stroke, hemorrhagic Surgical History Surgical History H/O rotator cuff surgery (~10/2009) Right H/O: hysterectomy History of partial gastrectomy History of tonsillectomy (~1950) Status post closed fracture of right femur (~1982) treated with femoral cruzito at [place] Family History Family History Sibling Family history of bipolar disorder Mother Family history of hypothyroidism Father Family history of hypothyroidism Other Cerebrovascular accident Depression Diabetes mellitus Family history of alcoholism Family history of arthritis Family history of attention deficit hyperactivity disorder (ADHD) Family history of blood dyscrasia Family history of congestive heart failure Family history of thyroid disease Social History Social History Smoking status: Never smoker Second hand tobacco smoke exposure: No Alcohol intake: never Additional living arrangements comments: Gender identity (if verbalized by the patient): Female Sexual Orientation (if Verbalized by the Patient): Straight or Heterosexual Exam Narrative: GENERAL: Well-appearing, well-nourished, and in no acute distress. HEAD: Normocephalic, ecchymoses around the orbits related to prior injury per patient report EYES: PERRLA and EOMI. ENT: Nares clear, no rhinorrhea or epistaxis. Mucous membranes moist. NECK: Supple.
[2021-06-01 17:42] VITALS: BP 128/78; PULSE 80; RESP 18; O2SAT 99
== END 2021-06-01 17:43 | disposition home or self-care (01) ==
PROVIDERS: Emergency Medicine; Emergency Provider Emergency Medicine; PCP Internal Medicine
DX: R11.2 Nausea with vomiting, unspecified (principal); R19.7 Diarrhea, unspecified; R10.9 Unspecified abdominal pain; E11.9 Type 2 diabetes mellitus without complications; I10 Essential (primary) hypertension; E03.9 Hypothyroidism, unspecified
CPT/HCPCS: 36415; 80053; 83690; 85025; 85055; 96361; 96374; 99284; J2405; J7030

== ENCOUNTER 2021-07-07 13:25 | Inpatient (IN) | payer OTHER, SELFPAY ==
--- NOTE | ~2021-07-07 | XR_ITS ---
SMALL BOWEL SERIES ONLY INDICATION: GI bleeding TECHNIQUE: Serial plain films and fluoroscopic spot films are performed following oral demonstration of thin barium. COMPARISON: Ultrasound dated 03/01/2019 FINDINGS: There are surgical changes of gastric bypass surgery. Barium was followed sequentially thro ugh the small bowel. The mucosal pattern is unremarkable. Flocculation of barium is noted which is n onspecific, although can be seen with malabsorption. No evidence for stricture, polyp, diverticula or obstruction of flow of contrast. Transit time is less than 2 hours 30 minutes. IMPRESSION: 1: Flocculation of barium which can be seen with malabsorption. Otherwise, unremarkable small bowel examination. No obstruction. Reviewed, dictated and finalized at location A. [employer] [employer]PER[employer] IMPRESSION: 1: Flocculation of barium which can be seen with malabsorption. Otherwise, unr emarkable small bowel examination. No obstruction.
[2021-07-07 14:06] VITALS: BP 107/45; PULSE 110; RESP 16; TEMP 36.6; O2SAT 100
[2021-07-07 19:00] VITALS: BP 114/52; PULSE 99; RESP 14; O2SAT 100
[2021-07-07 19:08] LABS: Glucose Point of Care 303 mg/dl (65-105)
--- NOTE | 2021-07-07 20:37 | ECG_ITS ---
Measurements Intervals [place] Rate: 102 P: 185 FL: 230 QRS: 3 QRSD: 85 T: 13 QT: 368 QTc: 481 Interpretive Statements SINUS TACHYCARDIA WITH SINUS ARRHYTHMIA ATRIAL COUPLET MINIMAL Q WAVES- HIGH LATERAL LEADS BASELINE ARTIFACT- II, III, AVR, AVF BORDERLINE ECG Electronically Signed On 07-08-2021 6:45:23 [employer] by Jordi Restrepo D.O.
[2021-07-07 20:59] VITALS: BP 118/50; PULSE 103; RESP 17; O2SAT 94
[2021-07-07] MEDS: SODIUM CHLORIDE 0.9% IV 1,000 ML 999 ML IV CONT (20:59)
[2021-07-07] MEDS: ONDANSETRON INJ 4 MG/2 ML VIAL IV PUSH (20:59)
[2021-07-07 21:12] LABS: Basophils Absolute Auto 0.1 K/mm3 (0.0-0.1); Basophils Percent Auto 0.6 % (0.2-1.2); Eosinophils Absolute Auto 0.1 K/mm3 (0-0.3); Eosinophils Percent Auto 0.8 % (0-4.4); Hematocrit 25.4 % (37.0-47.0); Hemoglobin 7.4 g/dL (12.0-15.0); Immature Granulocyte Absolute 0.04 K/mm3 (0.00-0.031); Immature Granulocyte Percent A 0.4 % (0-0.5); Lymphocytes Absolute Auto 1.53 K/mm3 (0.9-3.2); Lymphocytes Percent Auto 16.4 % (18.3-44.2); Mean Corpuscular HGB Conc 29.1 g/dl (32-36); Mean Corpuscular Hemoglobin 27.8 pg (26-34); Mean Corpuscular Volume 95.5 fl (80-100); Mean Platelet Volume 11.3 fl (7.4-10.4); Monocytes Absolute Auto 0.8 K/mm3 (0.1-0.6); Neutrophils Absolute Auto 6.9 K/mm3 (1.3-6.7); Neutrophils Percent Auto 73.8 % (45.5-73.1); Platelet Count Result 133 k/mm3 (150-375); Red Blood Count 2.66 M/mm3 (4.2-5.4); Red Cell Distribution Width 15.2 % (11.5-14.5); White Blood Count 9.3 K/mm3 (4.5-10.0)
[2021-07-07 21:23] LABS: Albumin Level 2.9 g/dL (3.5-5.1); Alkaline Phosphatase 208 U/L (38-126); Anion Gap 9 mmol/L (8-16); Aspartate Amino Transferase 95 U/L (14-36); Bilirubin,Total 1.5 mg/dL (0.2-1.3); Blood Urea Nitrogen 12 mg/dL (7-17); Calcium 7.9 mg/dL (8.4-10.2); Carbon Dioxide 21 mmol/L (22-30); Chloride 103 mmol/L (98-107); Estimated CRCL calculation 50 ml/min; Estimated Glomerular Filt Rate > 60; Glucose 286 mg/dL (65-110); Potassium 5.4 mmol/L (3.4-5.0); Sodium 133 mmol/L (137-145)
[2021-07-07 21:30] LABS: Alanine Aminotransferase 40 U/L (4-35)
[2021-07-07 21:33] LABS: Troponin I < 0.012 ng/mL (0.000-0.034)
--- NOTE | 2021-07-07 21:35 | ED.GENADULT ---
HPI - General Adult General Chief complaint: Dizziness Stated complaint: dizzy, headache, weak Time Seen by Provider: 07/07/21 20:23 History of Present Illness HPI narrative: Patient is 75-year-old female presents the emergency department with chief complaint of dizziness. The patient reports that this morning there was concern for possible carbon monoxide exposure EMS and the gas company was called out which determined there was not a carbon monoxide leak in the house. The patient states that she did stay up last night drink some wine and drink some fruit juice and is a diabetic. The patient was found to have a blood sugar in the 300s and the patient denied any chest pain denies shortness of breath denied any other complaint. Related Data Home Medications Medication Instructions Recorded Confirmed blood sugar diagnostic #10 each 06/17/19 07/07/20 lancets 26 gauge #100 each 06/17/19 07/07/20 ascorbic acid (vitamin C) 500 mg 500 mg PO DAILY 09/17/19 07/07/20 tablet Allergies Allergy/AdvReac Type Severity Reaction Status Date / Time clavulanic acid Allergy Intermediate RASH Verified 07/07/21 20:58 amoxicillin Allergy Unknown Rash Verified 07/07/21 20:58 latex Allergy Unknown Rash Verified 07/07/21 20:58 Sulfa (Sulfonamide Allergy Unknown Rash Verified 07/07/21 20:58 Antibiotics) vitamin A Allergy Unknown eyes swell Verified 07/07/21 20:58 Review of Systems Review of Systems: A 10 system review of systems was completed on the patient and is negative except for what is stated in the HPI. Nursing and ancillary documentation was reviewed. [facility] Past Medical History Medical History (Updated 07/07/21 @ 23:50 by Burton Queen MD) Anemia Bilateral primary osteoarthritis of knee Diabetes Hypertension Hypothyroidism Pancytopenia Stroke, hemorrhagic Surgical History Surgical History H/O rotator cuff surgery (~10/2009) Right H/O: hysterectomy History of partial gastrectomy History of tonsillectomy (~1950) Status post closed fracture of right femur (~1982) treated with femoral cruzito at [place] Family History Family History Sibling Family history of bipolar disorder Mother Family history of hypothyroidism Father Family history of hypothyroidism Other Cerebrovascular accident Depression Diabetes mellitus Family history of alcoholism Family history of arthritis Family history of attention deficit hyperactivity disorder (ADHD) Family history of blood dyscrasia Family history of congestive heart failure Family history of thyroid disease Social History Social History Smoking status: Never smoker Second hand tobacco smoke exposure: No Alcohol intake: never Additional living arrangements comments: Gender identity (if verbalized by the patient): Female Sexual Orientation (if Verbalized by the Patient): Straight or Heterosexual Exam Narrative: GENERAL: Well-appearing, well-nourished, and in no acute distress. HEAD: Normocephalic, atraumatic. EYES: PERRLA and EOMI. ENT: Nares clear, no rhinorrhea or epistaxis. Mucous membranes moist. NECK: Supple. CHEST: Clear to auscultation. No respiratory distress. HEART: Regular rate and rhythm. No murmur heard. Normal peripheral pulses. ABDOMEN: Soft, nontender, nondistended, normal active bowel sounds. EXTREMITIES: Normal range of motion. No edema. SKIN: Warm, dry, no rash. NEURO: No focal deficits. Alert and oriented x3. PSYCH: Normal mood and affect. Course Vital Signs Vital signs: Vital Signs Temperature 36.6 C 07/07/21 14:06 Pulse Rate 110 H 07/07/21 14:06 Respiratory Rate 16 07/07/21 14:06 Blood Pressure 107/45 L 07/07/21 14:06 Pulse Oximetry 100 07/07/21 14:06 Temperature 36.6 C 07/07/21 14:06 Pul
[2021-07-07 21:56] LABS: Add Urine Microscopic? YES; Appearance Urine Cloudy (Clear); Bacteria Urine 1+ /hpf; Bilirubin Urine Negative (Negative); Blood Urine Negative (Negative); Color Urine Amber (Yellow); Glucose Urine UA 3+ mg/dL (Negative); Ketones Urine Negative (Negative); Leukocyte Esterase Ur Negative LEU/UL (Negative); Mucus Urine Heavy /lpf; Nitrate Urine Negative (Negative); Protein Urine Negative (Negative); RBC Urine 0-2 /hpf (0-2); Specific Grav Ur 1.012 (1.001-1.035); Squamous Epithelial Cell Urine Rare /hpf (Few); WBC Urine 0-3 /hpf
[2021-07-07 21:59] LABS: Anisocytosis 1+ (NORMAL); Hypochromasia 1+ (NORMAL); Platelet Estimate Adequate (Adequate)
[2021-07-07 22:08] VITALS: BP 112/43; PULSE 89; RESP 15; O2SAT 96
[2021-07-07 22:54] VITALS: BP 118/48; PULSE 106; RESP 18; O2SAT 94
[2021-07-07 23:26] LABS: Hematocrit 25.2 % (37.0-47.0); Hemoglobin 7.5 g/dL (12.0-15.0)
[2021-07-08] VITALS (19 sets, daily range): BP systolic 114–150; BP diastolic 33–63; PULSE 79–100; RESP 15–20; TEMP 36.3–37.4; O2SAT 93–100; BMI 30.1
[2021-07-08] MEDS: PANTOPRAZOLE SODIUM IV 40 MG VIAL IV PUSH (00:12)
--- NOTE | 2021-07-08 01:16 | PC.NURSE ---
hospitalist at bedside
--- NOTE | 2021-07-08 01:32 | PM.IMHP ---
H&P: HPI History of Present Illness Date/Time: 07/08/21 01:32 Chief Complaint: Dizziness Narrative: Patient is 75-year-old female presents to the the emergency department with chief complaint of dizziness. Daughter is at bedside provided the history. The patient reports that this morning there was concern for possible carbon monoxide exposure EMS and the gas company was called out which determined there was not a carbon monoxide leak in the house. The patient states that she did stay up last night drink some wine and drink some fruit juice and is a diabetic. The patient was found to have a blood sugar in the 300s which is not usual for her and the patient denied any chest pain denies shortness of breath denied any other complaint. She then came to the ER for evaluation In the ER she was noted to have hemoglobin of 7.5 which is lot lower than her baseline which normal chest few months ago. She does report history of peptic ulcers in the past and had underwent bill rock to surgery in the past. Guaiac test was done in the ER which came back positive as well. In this setting she is admitted for further evaluation and management. Review of Systems Review of Systems: - CONSTITUTIONAL: Denies weight loss, fever and chills. - HEENT: Denies changes in vision and hearing - RESPIRATORY: Denies SOB and cough. - CV: Denies palpitations and CP. - GI: Denies abdominal pain, nausea, vomiting and diarrhea. - : Denies dysuria and urinary frequency. - MSK: Denies myalgia and joint pain. - SKIN: Denies rash and pruritus. - NEUROLOGICAL: Denies headache and syncope. Reports dizziness - PSYCHIATRIC: Denies recent changes in mood. Denies anxiety and depression. All systems reviewed & are unremarkable except as noted in HPI and below Constitutional: Constitutional: Reports fatigue and Reports weakness Neurologic: Reports weakness Endocrine: Endocrine: Reports fatigue PMFSH Past Medical History Medical History (Updated 07/07/21 @ 23:50 by Burton Queen MD) Anemia Bilateral primary osteoarthritis of knee Diabetes Hypertension Hypothyroidism Pancytopenia Stroke, hemorrhagic Surgical History Surgical History H/O rotator cuff surgery (~10/2009) Right H/O: hysterectomy History of partial gastrectomy History of tonsillectomy (~1950) Status post closed fracture of right femur (~1982) treated with femoral cruzito at [place] Family History Family History Sibling Family history of bipolar disorder Mother Family history of hypothyroidism Father Family history of hypothyroidism Other Cerebrovascular accident Depression Diabetes mellitus Family history of alcoholism Family history of arthritis Family history of attention deficit hyperactivity disorder (ADHD) Family history of blood dyscrasia Family history of congestive heart failure Family history of thyroid disease Social History Social History Smoking status: Never smoker Second hand tobacco smoke exposure: No Alcohol intake: current Drinks per week: 14 Substance use: never Additional living arrangements comments: Gender identity (if verbalized by the patient): Female Sexual Orientation (if Verbalized by the Patient): Straight or Heterosexual Spiritual care concerns: No Meds Home Medications and Allergies Home Medications Medication Instructions Recorded Confirmed Type ascorbic acid (vitamin C) 500 mg 500 mg PO DAILY 09/17/19 07/08/21 History tablet hydrochlorothiazide 12.5 mg tablet 12.5 mg PO DAILY #90 tablet 07/07/20 07/08/21 Rx losartan 50 mg tablet 50 mg PO DAILY #90 tablet 07/07/20 07/08/21 Rx lovastatin 20 mg tablet 20 mg PO QPM #90 tablet 07/13/20 07/08/21 Rx metformin 500 mg tablet 500 mg PO BID #180 tablet 07/18/20
--- NOTE | 2021-07-08 02:05 | ADMGEN ---
This patient, Laure Zaragoza, was admitted to [facility] Room 306-01. Patient/family oriented to hospital policies and general routines including ID bracelet, bed and alarms, visiting hours, pain management, procedures, bathroom and other care routines, personal items, smoking policy, room service/diet, and visiting hours. Information on how to activate the Rapid Response Team has been discussed. Patient/Family are encouraged to report perceived risks to care and to ask questions if they do not understand what they are told or what they should do.
[2021-07-08 05:25] LABS: Iron 31 ug/dL (37-170)
[2021-07-08 05:34] LABS: Percent Iron Saturation 10 % (20-50)
[2021-07-08 05:49] LABS: Hematocrit 21.7 % (37.0-47.0)
[2021-07-08 06:03] LABS: Hemoglobin 6.5 g/dL (12.0-15.0)
[2021-07-08 06:06] LABS: INR 1.8; Partial Thromboplastin Time 32.7 SECONDS (22.3-36.8); Prothrombin Time 20.7 Seconds (11.1-14.7)
[2021-07-08] MEDS: ACETAMINOPHEN 325 MG TABLET 650 MG PO ×2 (08:18→19:49)
[2021-07-08] MEDS: PARoxetine 20 MG TABLET 40 MG PO (08:19)
[2021-07-08 08:39] LABS: Glucose Point of Care 216 mg/dl (65-105)
[2021-07-08] MEDS: INSULIN ASPART (*BKC) 100 UNITS/ML SUB-Q ×3 (09:22→18:03)
[2021-07-08 09:47] LABS: IFOB Positive Control Positive; Immunochemical Fecal Occult Bl Positive (N)
[2021-07-08] MEDS: SODIUM CHLORIDE 0.9% IV 250 ML 30 ML IV CONT ×2 (10:05→19:52)
--- NOTE | 2021-07-08 10:11 | WPDGICN ---
Assessment and Plan Assessment and plan (1) Anemia: Qualifiers: Anemia type: unspecified type Qualified Code(s): D64.9 - Anemia, unspecified Code(s): D64.9 - Anemia, unspecified Status: Acute Assessment and Plan: Patient has anemia with decline in hemoglobin from 12-7 over the last 1 month. Suspect upper GI bleeding given the description of black melenic stools. And patient's history of hematemesis 3 weeks ago. Plan to transfuse to a stable hemoglobin. Will place patient on proton pump inhibitor therapy. Avoid NSAIDs. An EGD will be planned. After she is stabilized. If hemoglobin remains stable this will be performed Saturday morning. (2) Occult blood in stools: Code(s): R19.5 - Other fecal abnormalities Status: Acute Assessment and Plan: Occult blood in stool along with description black melenic stools suggest most likely upper GI bleeding. Plan for EGD on Saturday or sooner if bleeding persists. (3) History of partial gastrectomy: Code(s): Z90.3 - Acquired absence of stomach [part of] Status: Acute Assessment and Plan: Patient gives a distant history of peptic ulcer disease with a prior history of partial gastrectomy. This will be evaluated at time of endoscopy. GI Consult Note Consult date/time: 07/08/21 10:11 HPI: Laure Zaragoza is a 75 year old female Was asked to see this morning by the nursing staff. Patient reports becoming somewhat ill after eating fast food same which 3 weeks ago. She had nausea vomiting and hematemesis. This apparently improved until last evening when she became dizzy. She was taken to the emergency room found to have Hemoccult-positive stool balls and anemia. Baseline hemoglobin in May was 12 presentation hemoglobin of 7 in the ER. Nursing staff reports dark stool this morning. Family history is noncontributory. Patient's past history is significant for peptic ulcer disease in the past many years ago. She also has a history of gastric bypass. She has somewhat difficulty giving coordinated history. Review of Systems Review of Systems: All systems reviewed & are unremarkable except as noted in HPI and below PMFSH Past Medical History Medical History (Updated 07/08/21 @ 10:14 by Colten Connell MD) Anemia Bilateral primary osteoarthritis of knee Diabetes Hypertension Hypothyroidism Pancytopenia Stroke, hemorrhagic Surgical History Surgical History (Updated 12/18/21 @ 10:14 by Colten Connell MD) H/O rotator cuff surgery (~10/2009) Right H/O: hysterectomy History of partial gastrectomy History of tonsillectomy (~1950) Status post closed fracture of right femur (~1982) treated with femoral cruzito at [place] Family History Family History Sibling Family history of bipolar disorder Mother Family history of hypothyroidism Father Family history of hypothyroidism Other Cerebrovascular accident Depression Diabetes mellitus Family history of alcoholism Family history of arthritis Family history of attention deficit hyperactivity disorder (ADHD) Family history of blood dyscrasia Family history of congestive heart failure Family history of thyroid disease Social History Social History Smoking status: Never smoker Second hand tobacco smoke exposure: No Alcohol intake: current Drinks per week: 14 Substance use: never Additional living arrangements comments: Gender identity (if verbalized by the patient): Female Sexual Orientation (if Verbalized by the Patient): Straight or Heterosexual Spiritual care concerns: No Meds Home Medications and Allergies Home Medications Medication Instructions Recorded Confirmed Type ascorbic acid (vitamin C) 500 mg 500 mg PO DAILY 09/17/19 07/08/21 History tablet hydrochlorothiazide 12.5 mg table
--- NOTE | 2021-07-08 10:12 | PC.NURSE ---
RN at bedside first 15 minutes of blood transfusion running at 60 ml/hr. patient asymptomatic. rate increased to 125 ml/hr
[2021-07-08 11:35] LABS: Glucose Point of Care 206 mg/dl (65-105)
[2021-07-08] MEDS: LACTATED RINGERS 1,000 ML 70 ML IV CONT (15:36)
[2021-07-08 15:49] LABS: Hematocrit 23.4 % (37.0-47.0); Hemoglobin 7.2 g/dL (12.0-15.0)
[2021-07-08 16:41] LABS: Glucose Point of Care 217 mg/dl (65-105)
[2021-07-08] MEDS: LOVASTATIN 20 MG TABLET PO (18:03)
[2021-07-09 01:25] LABS: Hematocrit 29.7 % (37.0-47.0); Hemoglobin 9.3 g/dL (12.0-15.0)
[2021-07-09] MEDS: LEVOTHYROXINE SODIUM 75 MCG TABLET PO (05:49)
[2021-07-09 06:00] VITALS: BP 159/62; PULSE 82; RESP 18; TEMP 36.7; O2SAT 95
[2021-07-09 06:42] LABS: Hematocrit 29.8 % (37.0-47.0); Hemoglobin 8.7 g/dL (12.0-15.0)
[2021-07-09] MEDS: LACTATED RINGERS 1,000 ML 70 ML IV CONT (07:39)
[2021-07-09 08:00] VITALS: PULSE 82; RESP 18; O2SAT 95
[2021-07-09 08:21] LABS: Glucose Point of Care 193 mg/dl (65-105)
--- NOTE | 2021-07-09 09:51 | WPDGIPROGNO ---
Progress Note: A&P Assessment and Plan (1) Occult blood in stools: Code(s): R19.5 - Other fecal abnormalities Status: Acute Assessment and Plan: Occult blood in stool consistent with GI blood loss. Dark stools suggest melenic etiology and probably upper GI source. EGD tomorrow. (2) Anemia: Qualifiers: Anemia type: unspecified type Qualified Code(s): D64.9 - Anemia, unspecified Code(s): D64.9 - Anemia, unspecified Status: Acute Assessment and Plan: Patient with blood loss anemia. Appears to have had GI bleeding manifested by melenic stools that are Hemoccult positive. Plan for EGD in the morning. Monitor hemoglobin today. Patient has been started on PPI therapy. Current hemoglobin 8.7 appears stable presently. Will monitor closely and transfuse it continues to drop. (3) History of partial gastrectomy: Code(s): Z90.3 - Acquired absence of stomach [part of] Status: Acute Assessment and Plan: Patient has a prior history of partial gastrectomy secondary to peptic ulcer disease. This was many years ago. Will be evaluated at time endoscopy. Subjective Date/time seen: 07/09/21 09:51 Patient alert and comfortable this morning. Denies abdominal pain. No additional bleeding reported. Hemoglobin is improved after recent transfusion. Review of Systems Review of Systems: All systems reviewed & are unremarkable except as noted in HPI and below Exam Narrative: Physical exam reveals patient to be alert. Vital signs stable. HEENT exam reveals no icterus. Lungs are clear. Heart without murmur. Abdomen was obese soft nontender. Objective Data Vital Signs Vital Signs: Vital Signs - 24 hr 07/08/21 10:07 07/08/21 11:07 07/08/21 12:07 Temperature 97.7 F 98.8 F 99.3 F Pulse Rate 89 92 88 Respiratory Rate 16 17 16 Blood Pressure 118/33 L 114/49 L 133/55 L Pulse Oximetry 93 96 95 07/08/21 13:07 07/08/21 13:40 07/08/21 14:00 Temperature 98.7 F 97.3 F L 97.3 F L Pulse Rate 83 86 86 Respiratory Rate 15 16 16 Blood Pressure 123/42 L 128/46 L 128/46 L Pulse Oximetry 95 95 95 07/08/21 19:50 07/08/21 19:54 07/08/21 20:07 Temperature 99.0 F 99.0 F 98.7 F Pulse Rate 79 79 80 Respiratory Rate 16 18 18 Blood Pressure 134/46 L 134/46 L 135/50 L Pulse Oximetry 96 96 96 07/08/21 21:07 07/08/21 22:00 07/08/21 22:07 Temperature 98.9 F 98.8 F 98.8 F Pulse Rate 80 95 95 Respiratory Rate 18 18 18 Blood Pressure 134/39 L 132/63 132/63 Pulse Oximetry 95 95 95 07/08/21 22:58 07/09/21 06:00 Temperature 98.9 F 98.1 F Pulse Rate 80 82 Respiratory Rate 18 18 Blood Pressure 150/55 H 159/62 H Pulse Oximetry 98 95 Intake/Output Intake/Output: Intake & Output 07/06/21 07/07/21 07/08/21 07/09/21 23:59 23:59 23:59 23:59 Intake Total 1000 1590 2200 Output Total 200 300 502 Balance 800 1290 1698 Meds/Results Medications: Active Medications Generic Name Dose Route Start Last Admin Trade Name Freq PRN Reason Stop Dose Admin Acetaminophen 650 mg 07/08/21 07:51 07/08/21 19:49 Acetaminophen 325 Mg Tablet PO 650 mg Q6H PRN Administration Headache Dextrose 12.5 gm 07/08/21 05:37 Dextrose 50% 25 Gm/50 Ml Syringe IV PUSH PRN PRN Hypoglycemia Protocol Glucagon 1 mg 07/08/21 05:37 Glucagon For Inj 1 Mg Vial IM PRN PRN Hypoglycemia Protocol Glucose 15 gm 07/08/21 05:37 Glucose Oral Gel 15 Gm Of Glucse In 37.5 Gm Tube PO PRN PRN Hypoglycemia Protocol Pantoprazole Sodium 80 mg/ 500 mls @ 50 mls/hr 07/08/21 01:25 07/09/21 07:55 Dextrose IV CONT 50 mls/hr .Q10H NEDA Administration Dextrose 1,000 mls @ 100 mls/hr 07/08/21 05:37 Dextrose 5% 1,000 Ml IVPB PRN PRN Hypoglycemia Protocol Lactated Ringer's 1,000 mls @ 70 mls/hr 07/08/21 15:05 07/09/21 07:39 Lr - Lactated Ringers Iv IV CONT 70 mls/hr .[id number] NEDA Administrati
[2021-07-09] MEDS: PARoxetine 20 MG TABLET 40 MG PO (10:21)
--- NOTE | 2021-07-09 11:44 | PM.IMPN ---
Progress Note: A&P Assessment and Plan (1) Acute GI bleeding: Code(s): K92.2 - Gastrointestinal hemorrhage, unspecified Status: Acute (2) Anemia: Qualifiers: Anemia type: unspecified type Qualified Code(s): D64.9 - Anemia, unspecified Code(s): D64.9 - Anemia, unspecified Status: Acute (3) Bilateral primary osteoarthritis of knee: Code(s): M17.0 - Bilateral primary osteoarthritis of knee Status: Acute (4) Stroke, hemorrhagic: Code(s): I61.9 - Nontraumatic intracerebral hemorrhage, unspecified Status: Acute (5) Hypertension: Qualifiers: Hypertension type: essential hypertension Qualified Code(s): I10 - Essential (primary) hypertension Code(s): I10 - Essential (primary) hypertension Status: Acute (6) Chronic right shoulder pain: Code(s): M25.511 - Pain in right shoulder; G89.29 - Other chronic pain Status: Acute (7) Hypothyroidism (acquired): Code(s): E03.9 - Hypothyroidism, unspecified Status: Acute (8) Mixed hyperlipidemia: Code(s): E78.2 - Mixed hyperlipidemia Status: Acute (9) Type 2 diabetes mellitus with hyperglycemia: Code(s): E11.65 - Type 2 diabetes mellitus with hyperglycemia Status: Acute (10) Steatohepatitis, nonalcoholic: Code(s): K75.81 - Nonalcoholic steatohepatitis (HUBBARD) Status: Acute Additional Plan # Acute anemia likely cause of her dizziness hemoglobin 7.4. Continue to monitor H&H every 6 hours. Transfuse p.r.n. to keep hemoglobin more than 7. Guaiac positive suggesting GI bleed as a etiology baseline hemoglobin at 12 back in May 2021 # guaiac positive stool Protonix drip GI consultation in a.m. stop meloxicam # history of iron deficiency anemia on iron supplementation/B12 deficiency # history of peptic ulcer disease status post Bill[place]th 2 surgery in the past # history of hemorrhagic stroke in 2019 and Parkinson's disease # hypertension # hyperlipidemia # hypothyroidism # type 2 diabetes mellitus with hyperglycemia on metformin at home would place on SSI # DVT prophylaxis PAS boots # code status full code 07/09/21 Hgb stable Continue current care Clear liquid diet NPO at midnight EGD tomorrow Anticipate discharge home likely in 48 hours Subjective Date/time seen: 07/09/21 11:44 Patient doing okay resting denies any further episodes of bleeding. She is tolerating clears. Anticipate having her endoscopy tomorrow. Exam Narrative: GENERAL: Well-appearing, well-nourished, and in no acute distress. Obese HEAD: Normocephalic, atraumatic. EYES: EOMI. ENT: Nares clear, no rhinorrhea or epistaxis. NECK: Supple. CHEST: Clear to auscultation. No respiratory distress. HEART: Regular rate and rhythm. No murmur heard. Normal peripheral pulses. ABDOMEN: Soft, nontender, nondistended, normal active bowel sounds. EXTREMITIES: Normal range of motion. No edema. SKIN: Warm, dry, no rash. NEURO: No focal deficits. Alert and oriented x3. PSYCH: Normal mood and affect. Objective Data Vital Signs Vital Signs: Vital Signs - 24 hr 07/08/21 12:07 07/08/21 13:07 07/08/21 13:40 Temperature 99.3 F 98.7 F 97.3 F L Pulse Rate 88 83 86 Respiratory Rate 16 15 16 Blood Pressure 133/55 L 123/42 L 128/46 L Pulse Oximetry 95 95 95 07/08/21 14:00 07/08/21 19:50 07/08/21 19:54 Temperature 97.3 F L 99.0 F 99.0 F Pulse Rate 86 79 79 Respiratory Rate 16 16 18 Blood Pressure 128/46 L 134/46 L 134/46 L Pulse Oximetry 95 96 96 07/08/21 20:07 07/08/21 21:07 07/08/21 22:00 Temperature 98.7 F 98.9 F 98.8 F Pulse Rate 80 80 95 Respiratory Rate 18 18 18 Blood Pressure 135/50 L 134/39 L 132/63 Pulse Oximetry 96 95 95 07/08/21 22:07 07/08/21 22:58 07/09/21 06:00 Temperature 98.8 F 98.9 F 98.1 F Pulse Rate 95 80 82 Respiratory Rate 18 18 18 Blood Pressure 132/63 150/55 H 159/62 H Pulse Oximetry 95 98 95 07/09/21 08:00 Temperature P
[2021-07-09 12:28] LABS: Glucose Point of Care 202 mg/dl (65-105)
[2021-07-09] MEDS: INSULIN ASPART (*BKC) 100 UNITS/ML SUB-Q (12:41)
[2021-07-09 14:00] VITALS: BP 136/68; PULSE 91; RESP 18; TEMP 36.7; O2SAT 96
[2021-07-09 16:50] LABS: Glucose Point of Care 188 mg/dl (65-105)
[2021-07-09] MEDS: LOVASTATIN 20 MG TABLET PO (17:27)
[2021-07-09 22:00] VITALS: BP 149/53; PULSE 84; RESP 18; TEMP 36.2; O2SAT 98
[2021-07-09 22:10] LABS: Hematocrit 28.4 % (37.0-47.0); Hemoglobin 8.8 g/dL (12.0-15.0)
--- NOTE | 2021-07-09 23:57 | P.PCNBED_ITS ---
Procedures Central Line Placement Right Femoral: Central Line Date: 07/09/21 Central Line Time: 23:35 Discussed w/ the patient/family/POA,the placement of a central venous catheter, including its clinical necessity/indication & associated potential risks, benifits and alternatives.: Yes Time Out Performed: Yes Patient Position: supine Patient placed on monitor/pulse ox: Yes Provider Prep: Max. sterile barrier precautions Central line prep: Povidone-Iodine 1% Local anesthesia used: lidocaine 1% Amount of anesthesia used (ml): 10 Sterile US Technique with sterile gel/sterile probe covers: Yes Central line lumen inserted: triple Sinhala: 7 Length (cm): 16 Depth of Insertion (cm): 15 Post Procedure: sutured in place, good blood return, all ports aspirated, flushed, capped, transparent dressing and hemostatic product Patient tolerated procedure: well Complications: none Additional comments: No need for chest x-ray as it is femoral
--- NOTE | 2021-07-09 23:59 | PM.EVENT ---
Event Note Event Note Event Note: Several attempts have been tried to start an IV. I tried to start an IV in the right AC without success. The patient's hemoglobin did drop some and she is requiring a drip. Patient has a GI bleed and it was decided that it was best to place a central line. The patient was agreeable. See procedure note
[2021-07-10] VITALS (8 sets, daily range): BP systolic 108–164; BP diastolic 43–77; PULSE 78–99; RESP 14–18; TEMP 36.1–36.7; O2SAT 94–98
[2021-07-10] MEDS: LEVOTHYROXINE SODIUM 75 MCG TABLET PO (05:39)
[2021-07-10] MEDS: LACTATED RINGERS 1,000 ML 70 ML IV CONT ×2 (05:41→22:05)
[2021-07-10 06:29] LABS: Basophils Percent Auto 0.8 % (0.2-1.2); Eosinophils Absolute Auto 0.4 K/mm3 (0-0.3); Eosinophils Percent Auto 8.5 % (0-4.4); Hematocrit 24.7 % (37.0-47.0); Hemoglobin 7.9 g/dL (12.0-15.0); Immature Granulocyte Absolute 0.01 K/mm3 (0.00-0.031); Immature Granulocyte Percent A 0.2 % (0-0.5); Lymphocytes Absolute Auto 1.81 K/mm3 (0.9-3.2); Lymphocytes Percent Auto 36.6 % (18.3-44.2); Mean Corpuscular Hemoglobin 28.9 pg (26-34); Mean Corpuscular Volume 90.5 fl (80-100); Mean Platelet Volume 10.5 fl (7.4-10.4); Monocytes Absolute Auto 0.4 K/mm3 (0.1-0.6); Monocytes Percent Auto 7.7 % (2.6-8.5); Neutrophils Absolute Auto 2.3 K/mm3 (1.3-6.7); Neutrophils Percent Auto 46.2 % (45.5-73.1); Platelet Count Result 82 k/mm3 (150-375); Red Blood Count 2.73 M/mm3 (4.2-5.4); Red Cell Distribution Width 16.4 % (11.5-14.5)
[2021-07-10 06:42] LABS: Anion Gap 2 mmol/L (8-16); Blood Urea Nitrogen 12 mg/dL (7-17); Carbon Dioxide 25 mmol/L (22-30); Chloride 107 mmol/L (98-107); Estimated CRCL calculation 83 ml/min; Estimated Glomerular Filt Rate > 60; Glucose 188 mg/dL (65-110); Magnesium 1.6 mg/dL (1.6-2.3); Potassium 3.6 mmol/L (3.4-5.0); Sodium 134 mmol/L (137-145)
--- NOTE | 2021-07-10 08:13 | WPDANESEPPF ---
Anes - Initial Pre Proc Eval Procedure: Operation Date: 07/10/21 12:00 Proposed Procedures p Esophagogastroduodenoscopy - Colten Connell MD Date/Time: 07/10/21 08:13 Surgeon: Luke Hudson MD Pre Op Diagnosis: gi bleed, anemia Patient Data Age: 75 Gender: F Height: 1.75 m Weight: 92.6 kg Last Vital Signs Temp 36.5 C 07/10/21 06:00 Pulse 92 07/10/21 06:00 Resp 18 07/10/21 06:00 BP 144/77 H 07/10/21 06:00 Pulse Ox 98 07/10/21 06:00 Allergies Allergy/AdvReac Type Severity Reaction Status Date / Time clavulanic acid Allergy Intermediate RASH Verified 07/07/21 20:58 amoxicillin Allergy Unknown Rash Verified 07/07/21 20:58 latex Allergy Unknown Rash Verified 07/07/21 20:58 Sulfa (Sulfonamide Allergy Unknown Rash Verified 07/07/21 20:58 Antibiotics) vitamin A Allergy Unknown eyes swell Verified 07/07/21 20:58 Home Medications Medication Instructions Recorded Confirmed Type ascorbic acid (vitamin C) 500 mg 500 mg PO DAILY 09/17/19 07/08/21 History tablet hydrochlorothiazide 12.5 mg tablet 12.5 mg PO DAILY #90 tablet 07/07/20 07/08/21 Rx losartan 50 mg tablet 50 mg PO DAILY #90 tablet 07/07/20 07/08/21 Rx lovastatin 20 mg tablet 20 mg PO QPM #90 tablet 07/13/20 07/08/21 Rx metformin 500 mg tablet 500 mg PO BID #180 tablet 07/18/20 07/08/21 Rx levothyroxine 75 mcg tablet 75 mcg PO DAILY #90 tablet 07/27/20 07/08/21 Rx meloxicam 7.5 mg tablet 7.5 mg PO DAILY #90 tablet 08/01/20 07/08/21 Rx paroxetine HCl 40 mg tablet 40 mg PO DAILY #90 tablet 09/03/20 07/08/21 Rx amlodipine 2.5 mg tablet 2.5 mg PO DAILY #90 tablet 06/22/21 07/08/21 Rx Laboratory Tests 07/09/21 07/09/21 07/09/21 08:01 12:08 16:42 WBC RBC Hgb Hct MCV MCH MCHC RDW Plt Count MPV Immature Gran % (Auto) Neut % (Auto) Lymph % (Auto) [place] % (Auto) Eos % (Auto) Baso % (Auto) Lymph # (Auto) [place] # (Auto) Eos # (Auto) Baso # (Auto) Abs Immat Gran (auto) Absolute Neuts (auto) Absolute Nucleated RBC Nucleated RBC % Sodium Potassium Chloride Carbon Dioxide Anion Gap BUN Creatinine Estim Creat Clear Calc Estimated GFR Glucose POC Capillary Glucose 193 mg/dl H mg/dl 202 mg/dl H mg/dl 188 mg/dl H mg/dl (65-105) (65-105) (65-105) Calcium Magnesium 07/09/21 07/10/21 07/10/21 22:00 06:19 06:19 WBC 5.0 K/mm3 K/mm3 (4.5-10.0) RBC 2.73 M/mm3 L M/mm3 (4.2-5.4) Hgb 8.8 g/dL L g/dL 7.9 g/dL L g/dL (12.0-15.0) (12.0-15.0) Hct 28.4 % L % 24.7 % L % (37.0-47.0) (37.0-47.0) MCV 90.5 fl D fl (80-100) MCH 28.9 pg pg (26-34) MCHC 32.0 g/dl g/dl (32-36) RDW 16.4 % H % (11.5-14.5) Plt Count 82 k/mm3 L k/mm3 (150-375) MPV 10.5 fl H fl (7.4-10.4) Immature Gran % (Auto) 0.2 % % (0-0.5) Neut % (Auto) 46.2 % % (45.5-73.1) Lymph % (Auto) 36.6 % % (18.3-44.2) [place] % (Auto) 7.7 % % (2.6-8.5) Eos % (Auto) 8.5 % H % (0-4.4) Baso % (Auto) 0.8 % % (0.2-1.2) Lymph # (Auto) 1.81 K/mm3 K/mm3 (0.9-3.2) [place] # (Auto) 0.4 K/mm3 K/mm3 (0.1-0.6) Eos # (Auto) 0.4 K/mm3 H K/mm3 (0-0.3) Baso # (Auto) 0.0 K/mm3 K/mm3 (0.0-0.1) Abs Immat Gran (auto) 0.01 K/mm3 K/mm3 (0.00-0.031) Absolute Neuts (auto) 2.3 K/mm3 K/mm3 (1.3-6.7) Absolute Nucleated RBC 0.0 K/mm3 K/mm3 (0.0-0.012) Nucleated RBC % 0.0 % % (0.0-0.2) Sodium 134 mmol/
--- NOTE | 2021-07-10 10:26 | PC.NURSE ---
to GI lab per aries
[2021-07-10 10:42] LABS: Glucose Point of Care 174 mg/dl (65-105)
[2021-07-10] MEDS: LACTATED RINGERS 1,000 ML 150 ML IV CONT (10:47)
[2021-07-10 11:31] LABS: Glucose Point of Care 178 mg/dl (65-105)
[2021-07-10] MEDS: PARoxetine 20 MG TABLET 40 MG PO (12:09)
--- NOTE | 2021-07-10 12:49 | P.CDI_ITS ---
CDI Query Clarification Request Patient admitted with acute GI bleeding and anemia. Patient has received 2 units RBC, 07/10/21 Hgb 7.9 and Hct 24.7. Please clarify acuity and causal condition of Anemia if known: * Acute blood loss anemia * Chronic blood loss anemia * Iron Deficiency Anemia * Other Anemia <ADELOS Christine - Last Filed: 07/10/21 12:53> Clarified Diagnosis (1) ABLA (acute blood loss anemia): Code(s): D62 - Acute posthemorrhagic anemia <Sara Alejandre CRUSHER SETTER - Last Filed: 07/10/21 12:53> Status: Acute <ADELSO Christine - Last Filed: 07/10/21 12:53>
--- NOTE | 2021-07-10 12:49 | WPDCDIQUERY2 ---
CDI Query Clarification Request Patient admitted with acute GI bleeding and anemia. Patient has received 2 units RBC, 07/10/21 Hgb 7.9 and Hct 24.7. Please clarify acuity and causal condition of Anemia if known: Acute blood loss anemia Chronic blood loss anemia Iron Deficiency Anemia Other Anemia <ADELSO Christine - Last Filed: 07/10/21 12:53> Clarified Diagnosis (1) ABLA (acute blood loss anemia): Code(s): D62 - Acute posthemorrhagic anemia <ADELSO Christine - Last Filed: 07/10/21 12:53> Status: Acute <ADELSO Christine - Last Filed: 07/10/21 12:53>
--- NOTE | 2021-07-10 13:16 | PM.IMPN ---
Progress Note: A&P Assessment and Plan (1) Acute GI bleeding: Code(s): K92.2 - Gastrointestinal hemorrhage, unspecified Status: Acute (2) Anemia: Qualifiers: Anemia type: unspecified type Qualified Code(s): D64.9 - Anemia, unspecified Code(s): D64.9 - Anemia, unspecified Status: Acute (3) Bilateral primary osteoarthritis of knee: Code(s): M17.0 - Bilateral primary osteoarthritis of knee Status: Acute (4) Stroke, hemorrhagic: Code(s): I61.9 - Nontraumatic intracerebral hemorrhage, unspecified Status: Acute (5) Hypertension: Qualifiers: Hypertension type: essential hypertension Qualified Code(s): I10 - Essential (primary) hypertension Code(s): I10 - Essential (primary) hypertension Status: Acute (6) Chronic right shoulder pain: Code(s): M25.511 - Pain in right shoulder; G89.29 - Other chronic pain Status: Acute (7) Hypothyroidism (acquired): Code(s): E03.9 - Hypothyroidism, unspecified Status: Acute (8) Mixed hyperlipidemia: Code(s): E78.2 - Mixed hyperlipidemia Status: Acute (9) Type 2 diabetes mellitus with hyperglycemia: Code(s): E11.65 - Type 2 diabetes mellitus with hyperglycemia Status: Acute (10) Steatohepatitis, nonalcoholic: Code(s): K75.81 - Nonalcoholic steatohepatitis (HUBBARD) Status: Acute Additional Plan # Acute anemia likely cause of her dizziness hemoglobin 7.4. Continue to monitor H&H every 6 hours. Transfuse p.r.n. to keep hemoglobin more than 7. Guaiac positive suggesting GI bleed as a etiology baseline hemoglobin at 12 back in May 2021 # guaiac positive stool Protonix drip GI consultation in a.m. stop meloxicam # history of iron deficiency anemia on iron supplementation/B12 deficiency # history of peptic ulcer disease status post [place]th 2 surgery in the past # history of hemorrhagic stroke in 2019 and Parkinson's disease # hypertension # hyperlipidemia # hypothyroidism # type 2 diabetes mellitus with hyperglycemia on metformin at home would place on SSI # DVT prophylaxis PAS boots # code status full code 07/09/21 Hgb stable Continue current care Clear liquid diet NPO at midnight EGD tomorrow Anticipate discharge home likely in 48 hours Subjective Date/time seen: 07/10/21 13:16 Interval history: 75-year-old female presents to the the emergency department with chief complaint of dizziness. Admitted with GI bleeding. Pt had history of ulcer bleeding 40 years ago had partial gastrectomy then. Pt drinks 2 glases of wine a day for number of years describes some GERD symptoms. pt going for EGD today. Review of Systems Review of Systems: All systems reviewed & are unremarkable except as noted in HPI and below Exam Narrative: GENERAL: Well-appearing, well-nourished, and in no acute distress. Obese HEAD: Normocephalic, atraumatic. EYES: EOMI. ENT: Nares clear, no rhinorrhea or epistaxis. NECK: Supple. CHEST: Clear to auscultation. No respiratory distress. HEART: Regular rate and rhythm. No murmur heard. Normal peripheral pulses. ABDOMEN: Soft, nontender, nondistended, normal active bowel sounds. EXTREMITIES: Normal range of motion. No edema. SKIN: Warm, dry, no rash. NEURO: No focal deficits. Alert and oriented x3. PSYCH: Normal mood and affect. Objective Data Vital Signs Vital Signs: Vital Signs - 24 hr 07/09/21 14:00 07/09/21 22:00 07/10/21 06:00 Temperature 36.7 C 36.2 C L 36.5 C Pulse Rate 91 84 92 Respiratory Rate 18 18 18 Blood Pressure 136/68 149/53 H 144/77 H Pulse Oximetry 96 98 98 07/10/21 10:42 07/10/21 11:22 07/10/21 11:32 Temperature 36.2 C L Pulse Rate 83 90 99 Respiratory Rate 18 18 18 Blood Pressure 152/64 H 108/43 L 124/47 L Pulse Oximetry 98 96 95 07/10/21 11:42 07/10/21 12:00 Temperature 36.7 C Pulse Rate 86 78 Respiratory Rate 14 18 Blood Pressure 150/52 H 164/63 H Pulse Oxime
[2021-07-10] MEDS: PEG (High)/E-LYTE SOLN 4,000 ML BTL 4000 ML PO (16:45)
[2021-07-10 17:01] LABS: Glucose Point of Care 213 mg/dl (65-105)
[2021-07-10] MEDS: INSULIN ASPART (*BKC) 100 UNITS/ML SUB-Q (17:34)
[2021-07-10] MEDS: LOVASTATIN 20 MG TABLET PO (17:34)
[2021-07-11 06:00] VITALS: BP 128/36; PULSE 85; RESP 18; TEMP 36.6; O2SAT 97
[2021-07-11] MEDS: LEVOTHYROXINE SODIUM 75 MCG TABLET PO (06:04)
[2021-07-11 08:00] VITALS: BP 136/46; PULSE 76; RESP 16; TEMP 36.5; O2SAT 96
--- NOTE | 2021-07-11 08:02 | WPDANESEFPP ---
Anes - Eval Final PreProcedure Day of Procedure 07/11/21 08:02 Patient weight: obese Heart: regular rate and rhythm Lungs: clear to auscultation Airway: Mallampati scale class II Neurological: alert and oriented Last oral intake: >/= 8 hours ASA classification: III Emergent: no Anesthetic plan: proceed Anesthesia type and monitoring: general GIVS and standard monitoring Results Review: All pre-operative results and documents have been reviewed as part of the pre-operative evaluation. Informed Consent: The patient's anesthetic plan and its attendant risks and benefits were discussed with the patient/family/POA. Questions were solicited and answers provided to the satisfaction of the patient/family/POA.
[2021-07-11 08:11] LABS: Glucose Point of Care 193 mg/dl (65-105)
[2021-07-11] MEDS: LACTATED RINGERS 1,000 ML 150 ML IV CONT (08:14)
--- NOTE | 2021-07-11 08:40 | WPDANESPN ---
Anes - Prog Note Post-Op Date/Time: 07/11/21 08:40 Cardiovascular status: normal Respiratory status: normal Airway patency: baseline Mental status: baseline Post-Op hydration status: normal Vital Signs: Last Vital Signs Temp 36.5 C 07/11/21 08:00 Pulse 76 07/11/21 08:00 Resp 16 07/11/21 08:00 BP 136/46 L 07/11/21 08:00 Pulse Ox 96 07/11/21 08:00 Pain Score (VAS): 0 I/O: Intake & Output 07/10/21 07/11/21 07/11/21 23:59 07:59 15:59 Intake Total 1620 2000 Output Total 2500 Balance 1620 -500 Laboratory Tests 07/10/21 06:19 07/10/21 06:19 07/10/21 07/10/21 07/10/21 10:39 11:29 16:53 POC Capillary Glucose 174 H 178 H 213 H 07/11/21 08:09 POC Capillary Glucose 193 H Post-procedural complaints: none Patient Feedback: Patient satisfied with anesthetic care.
[2021-07-11] MEDS: SIMETHICONE ORAL SUSPENSION 20 MG/0.3 ML 30 ML BOTTLE 0.6 ML PO (09:12)
[2021-07-11 09:21] VITALS: BP 119/53; PULSE 91; RESP 20; O2SAT 97
[2021-07-11 09:31] VITALS: BP 134/60; PULSE 78; RESP 19; O2SAT 100
--- NOTE | 2021-07-11 11:42 | PM.IMPN ---
Progress Note: A&P Assessment and Plan (1) Acute GI bleeding: Code(s): K92.2 - Gastrointestinal hemorrhage, unspecified Status: Acute (2) Anemia: Qualifiers: Anemia type: unspecified type Qualified Code(s): D64.9 - Anemia, unspecified Code(s): D64.9 - Anemia, unspecified Status: Acute (3) Bilateral primary osteoarthritis of knee: Code(s): M17.0 - Bilateral primary osteoarthritis of knee Status: Acute (4) Stroke, hemorrhagic: Code(s): I61.9 - Nontraumatic intracerebral hemorrhage, unspecified Status: Acute (5) Hypertension: Qualifiers: Hypertension type: essential hypertension Qualified Code(s): I10 - Essential (primary) hypertension Code(s): I10 - Essential (primary) hypertension Status: Acute (6) Chronic right shoulder pain: Code(s): M25.511 - Pain in right shoulder; G89.29 - Other chronic pain Status: Acute (7) Hypothyroidism (acquired): Code(s): E03.9 - Hypothyroidism, unspecified Status: Acute (8) Mixed hyperlipidemia: Code(s): E78.2 - Mixed hyperlipidemia Status: Acute (9) Type 2 diabetes mellitus with hyperglycemia: Code(s): E11.65 - Type 2 diabetes mellitus with hyperglycemia Status: Acute (10) Steatohepatitis, nonalcoholic: Code(s): K75.81 - Nonalcoholic steatohepatitis (HUBBARD) Status: Acute Additional Plan # sp colonscopy and EGD see full reports rpt HB in AM and dc # guaiac positive stool Protonix drip GI consultation in a.m. stop meloxicam # history of iron deficiency anemia on iron supplementation/B12 deficiency # history of peptic ulcer disease status post Billroth 2 surgery in the past # history of hemorrhagic stroke in 2019 and Parkinson's disease # hypertension # hyperlipidemia # hypothyroidism # type 2 diabetes mellitus with hyperglycemia on metformin at home would place on SSI # DVT prophylaxis PAS boots # code status full code Subjective Date/time seen: 07/11/21 11:42 Interval history: 75-year-old female presents to the the emergency department with chief complaint of dizziness. Admitted with GI bleeding. Pt had history of ulcer bleeding 40 years ago had partial gastrectomy then. Pt drinks 2 glases of wine a day for number of years describes some GERD symptoms. pt sp EGD and colonoscopy today. anticipate DC tomorrow after cbc in AM. Review of Systems Review of Systems: All systems reviewed & are unremarkable except as noted in HPI and below Exam Const: General: cooperative and other (pale appearing ) Nutritional Appearance: overweight Orientation/consciousness: oriented to person HENMT: Head: normal to inspection Resp: Effort & Inspection: no respiratory distress Auscultation: no rhonchi and no wheezes Cardio: Rate: regular rate Rhythm: regular rhythm GI: Inspection: normal to inspection GI Palp: No abdominal tenderness, No Guarding due to palpation present (GI) and No Hepatomegaly present Auscultation: normal bowel sounds Neuro: General: oriented to person Objective Data Vital Signs Vital Signs: Vital Signs - 24 hr 07/10/21 12:00 07/10/21 14:00 07/10/21 22:00 Temperature 36.7 C 36.4 C L 36.1 C L Pulse Rate 78 82 85 Respiratory Rate 18 16 18 Blood Pressure 164/63 H 151/69 H 149/71 H Pulse Oximetry 96 94 97 07/11/21 06:00 07/11/21 08:00 07/11/21 09:21 Temperature 36.6 C 36.5 C Pulse Rate 85 76 91 Respiratory Rate 18 16 20 Blood Pressure 128/36 L 136/46 L 119/53 L Pulse Oximetry 97 96 97 07/11/21 09:31 Temperature Pulse Rate 78 Respiratory Rate 19 Blood Pressure 134/60 Pulse Oximetry 100 Intake/Output Intake/Output: Intake & Output 07/08/21 07/09/21 07/10/21 07/11/21 23:59 23:59 23:59 23:59 Intake Total 1590 3560 3560 2000 Output Total 300 1152 2500 Balance 1290 2408 3560 -500 Meds/Results Medications: Active Medications Generic Name Dose Route Start Last Admin Trade Name
[2021-07-11 12:16] LABS: Glucose Point of Care 194 mg/dl (65-105)
[2021-07-11 14:00] VITALS: BP 121/60; PULSE 89; RESP 18; TEMP 36.6; O2SAT 92
[2021-07-11 16:57] LABS: Glucose Point of Care 242 mg/dl (65-105)
[2021-07-11] MEDS: INSULIN ASPART (*BKC) 100 UNITS/ML SUB-Q (17:03)
[2021-07-11] MEDS: LOVASTATIN 20 MG TABLET PO (17:03)
[2021-07-11] MEDS: LACTATED RINGERS 1,000 ML 70 ML IV CONT (18:29)
[2021-07-11] MEDS: ACETAMINOPHEN 325 MG TABLET 650 MG PO (20:12)
[2021-07-11 21:44] LABS: Glucose Point of Care 271 mg/dl (65-105)
[2021-07-11 22:00] VITALS: BP 133/54; PULSE 78; RESP 18; TEMP 36.3; O2SAT 98
[2021-07-12] MEDS: LEVOTHYROXINE SODIUM 75 MCG TABLET PO (05:53)
[2021-07-12] MEDS: LACTATED RINGERS 1,000 ML 70 ML IV CONT ×2 (05:54→20:57)
[2021-07-12 06:00] VITALS: BP 151/56; PULSE 81; RESP 18; TEMP 36.7; O2SAT 94
[2021-07-12] MEDS: PARoxetine 20 MG TABLET 40 MG PO (08:11)
[2021-07-12] MEDS: INSULIN ASPART (*BKC) 100 UNITS/ML SUB-Q ×3 (08:12→17:22)
--- NOTE | 2021-07-12 08:12 | WPDGIPROGNO ---
Progress Note: A&P Assessment and Plan (1) Occult blood in stools: Code(s): R19.5 - Other fecal abnormalities Status: Acute Assessment and Plan: Occult blood in stools suggestive of recent GI bleeding. GI workup now completed essentially stable. Previous partial gastrectomy may allow for iron malabsorption. Continue to monitor hemoglobin after discharge. If necessary intravenous iron may be required given her previous partial gastrectomy. Small-bowel follow-through unremarkable as was her colonoscopy. EGD revealed no acute findings. Would suggest follow-up CBC at several week intervals after discharge to ensure resolution. (2) Anemia: Qualifiers: Anemia type: unspecified type Qualified Code(s): D64.9 - Anemia, unspecified Code(s): D64.9 - Anemia, unspecified Status: Acute (3) History of partial gastrectomy: Code(s): Z90.3 - Acquired absence of stomach [part of] Status: Acute Subjective Date/time seen: 07/12/21 08:12 Patient alert and comfortable today. No additional bleeding reported. Denies abdominal pain. Tolerating diet. Review of Systems Review of Systems: All systems reviewed & are unremarkable except as noted in HPI and below Exam Narrative: Physical exam vital signs are stable. Lungs are clear. Heart without murmur. Abdomen bowel sounds present soft nontender with no organomegaly. Objective Data Vital Signs Vital Signs: Vital Signs - 24 hr 07/11/21 09:21 07/11/21 09:31 07/11/21 14:00 Temperature 97.8 F Pulse Rate 91 78 89 Respiratory Rate 20 19 18 Blood Pressure 119/53 L 134/60 121/60 Pulse Oximetry 97 100 92 07/11/21 22:00 07/12/21 06:00 Temperature 97.3 F L 98.1 F Pulse Rate 78 81 Respiratory Rate 18 18 Blood Pressure 133/54 L 151/56 H Pulse Oximetry 98 94 Intake/Output Intake/Output: Intake & Output 07/09/21 07/10/21 07/11/21 07/12/21 23:59 23:59 23:59 23:59 Intake Total 3560 3560 3740 1800 Output Total 1152 2500 Balance 2408 3560 1240 1800 Meds/Results Medications: Active Medications Generic Name Dose Route Start Last Admin Trade Name Freq PRN Reason Stop Dose Admin Acetaminophen 650 mg 07/08/21 07:51 07/11/21 20:12 Acetaminophen 325 Mg Tablet PO 650 mg Q6H PRN Administration Headache Dextrose 12.5 gm 07/08/21 05:37 Dextrose 50% 25 Gm/50 Ml Syringe IV PUSH PRN PRN Hypoglycemia Protocol Glucagon 1 mg 07/08/21 05:37 Glucagon For Inj 1 Mg Vial IM PRN PRN Hypoglycemia Protocol Glucose 15 gm 07/08/21 05:37 Glucose Oral Gel 15 Gm Of Glucse In 37.5 Gm Tube PO PRN PRN Hypoglycemia Protocol Pantoprazole Sodium 80 mg/ 500 mls @ 50 mls/hr 07/08/21 01:25 07/12/21 05:54 Dextrose IV CONT 50 mls/hr .Q10H NEDA Administration Dextrose 1,000 mls @ 100 mls/hr 07/08/21 05:37 Dextrose 5% 1,000 Ml IVPB PRN PRN Hypoglycemia Protocol Lactated Ringer's 1,000 mls @ 70 mls/hr 07/08/21 15:05 07/12/21 05:54 Lr - Lactated Ringers Iv IV CONT 70 mls/hr .[id number] NEDA Administration Lactated Ringer's 1,000 mls @ 150 mls/hr 07/11/21 08:15 07/11/21 15:03 Lr - Lactated Ringers Iv IV CONT Not Given .Q6H40M NEDA Insulin Aspart 2 - 5 units 07/08/21 08:00 07/11/21 17:03 Insulin Aspart (*Bkc) 100 Units/Ml SUB-Q 2 units TIDWM NEDA Administration Protocol Levothyroxine Sodium 75 mcg 07/08/21 06:30 07/12/21 05:53 Levothyroxine Sodium 75 Mcg Tablet PO 75 mcg DAILY@0630 NEDA Administration Lovastatin 20 mg 07/08/21 18:00 07/11/21 17:03 Lovastatin 20 Mg Tablet PO 20 mg QPM NEDA Administration Ondansetron HCl 4 mg 07/07/21 23:46 Ondansetron Inj 4 Mg/2 Ml Vial IV PUSH Q4H PRN Nausea Paroxetine HCl 40 mg 07/08/21 09:00 07/11/21 07:35 Paroxetine 20 Mg Tablet PO Not Given DAILY NEDA Simethicone 0.6 ml 07/11/21 09:11 07/11/21 09:12 Simethicone Or
[2021-07-12 08:31] LABS: Hematocrit 23.4 % (37.0-47.0); Hemoglobin 7.2 g/dL (12.0-15.0); Immature Platelet Fraction Pct 7.2 % (0.9-11.2); Mean Corpuscular HGB Conc 30.8 g/dl (32-36); Mean Corpuscular Hemoglobin 27.8 pg (26-34); Mean Corpuscular Volume 90.3 fl (80-100); Mean Platelet Volume 11.5 fl (7.4-10.4); Platelet Count Result 88 k/mm3 (150-375); Red Blood Count 2.59 M/mm3 (4.2-5.4); Red Cell Distribution Width 16.3 % (11.5-14.5); White Blood Count 3.9 K/mm3 (4.5-10.0)
[2021-07-12 08:32] LABS: Glucose Point of Care 227 mg/dl (65-105)
[2021-07-12 08:52] LABS: Anion Gap 4 mmol/L (8-16); Blood Urea Nitrogen 4 mg/dL (7-17); Calcium 7.7 mg/dL (8.4-10.2); Carbon Dioxide 26 mmol/L (22-30); Chloride 103 mmol/L (98-107); Estimated CRCL calculation 98 ml/min; Estimated Glomerular Filt Rate > 60; Glucose 241 mg/dL (65-110); Potassium 3.3 mmol/L (3.4-5.0); Sodium 133 mmol/L (137-145)
[2021-07-12] MEDS: POTASSIUM CHLORIDE 20 MEQ TABLET 40 MEQ PO (10:00)
[2021-07-12] MEDS: ACETAMINOPHEN 325 MG TABLET 650 MG PO (10:00)
[2021-07-12 12:27] LABS: Glucose Point of Care 272 mg/dl (65-105)
[2021-07-12 14:00] VITALS: BP 147/55; PULSE 78; RESP 18; TEMP 36.9; O2SAT 94
[2021-07-12 17:12] LABS: Glucose Point of Care 226 mg/dl (65-105)
[2021-07-12] MEDS: LOVASTATIN 20 MG TABLET PO (17:22)
--- NOTE | 2021-07-12 17:47 | PM.IMPN ---
Progress Note: A&P Assessment and Plan (1) Acute GI bleeding: Code(s): K92.2 - Gastrointestinal hemorrhage, unspecified Status: Acute (2) Anemia: Qualifiers: Anemia type: unspecified type Qualified Code(s): D64.9 - Anemia, unspecified Code(s): D64.9 - Anemia, unspecified Status: Acute (3) Bilateral primary osteoarthritis of knee: Code(s): M17.0 - Bilateral primary osteoarthritis of knee Status: Acute (4) Stroke, hemorrhagic: Code(s): I61.9 - Nontraumatic intracerebral hemorrhage, unspecified Status: Acute (5) Hypertension: Qualifiers: Hypertension type: essential hypertension Qualified Code(s): I10 - Essential (primary) hypertension Code(s): I10 - Essential (primary) hypertension Status: Acute (6) Chronic right shoulder pain: Code(s): M25.511 - Pain in right shoulder; G89.29 - Other chronic pain Status: Acute (7) Hypothyroidism (acquired): Code(s): E03.9 - Hypothyroidism, unspecified Status: Acute (8) Mixed hyperlipidemia: Code(s): E78.2 - Mixed hyperlipidemia Status: Acute (9) Type 2 diabetes mellitus with hyperglycemia: Code(s): E11.65 - Type 2 diabetes mellitus with hyperglycemia Status: Acute (10) Steatohepatitis, nonalcoholic: Code(s): K75.81 - Nonalcoholic steatohepatitis (HUBBARD) Status: Acute (11) Hypokalemia: Code(s): E87.6 - Hypokalemia Status: Acute Additional Plan # sp colonoscopy and EGD see full reports rpt Hgb 7.2 this morning-->repeat cbc in a.m. if hgb stable may be able to d/c # guaiac positive stool Protonix drip GI consultation in a.m. stop meloxicam # history of iron deficiency anemia on iron supplementation/B12 deficiency # history of peptic ulcer disease status post Billroth 2 surgery in the past # history of hemorrhagic stroke in 2019 and Parkinson's disease # hypertension # hyperlipidemia # hypothyroidism # type 2 diabetes mellitus with hyperglycemia on metformin at home would place on SSI # hypokalemia-->mild k+ 3.3, replace with 40 meq KCL, repeat in a.m. # DVT prophylaxis PAS boots # code status full code Subjective Date/time seen: 07/12/21 17:47 Interval history: Pt seen today; no acute events overnight; denies n/v any bloody stools Review of Systems Review of Systems: All systems reviewed & are unremarkable except as noted in HPI and below Exam Const: General: no acute distress, alert and awake Orientation/consciousness: patient oriented x3 HENMT: Head: normocephalic and atraumatic Ears: hearing grossly normal bilaterally and external ears normal Face and sinus: face symmetric Mouth: Yes Normal oral and palatal mucosa present Eyes: EOM: EOMs intact bilaterally Neck: Neck: full ROM, trachea midline and no JVD Resp: Effort & Inspection: normal respiratory effort Auscultation: clear to auscultation bilaterally Cardio: Jugular venous distension: no JVD Rate: regular rate Rhythm: regular rhythm Heart sounds: S1 normal heart sound present and S2 normal heart sound present GI: Inspection: normal to inspection GI Palp: Yes Soft to palpation Auscultation: normal bowel sounds : General: Yes no CVA tenderness Skin: General skin exam: normal color Rashes: no rashes Neuro: General: patient oriented x3 and no focal motor deficits Speech: normal speech Extrem: General: no clubbing, cyanosis or edema Psych: Appearance: grossly normal Affect: normal affect Judgement: Good judgement present (Psych) Objective Data Vital Signs Vital Signs: Vital Signs - 24 hr 07/11/21 22:00 07/12/21 06:00 Temperature 36.3 C L 36.7 C Pulse Rate 78 81 Respiratory Rate 18 18 Blood Pressure 133/54 L 151/56 H Pulse Oximetry 98 94 Intake/Output Intake/Output: Intake & Output 07/09/21 07/10/21 07/11/21 07/12/21 23:59 23:59 23:59 23:59 Intake Total 3560 3560 3740 2780 Output Total 1152 7374 Fabricio
[2021-07-12 20:00] VITALS: PULSE 89; RESP 18; O2SAT 97
[2021-07-12] MEDS: MELATONIN 3 MG TABLET PO (21:52)
[2021-07-12 22:00] VITALS: BP 149/68; PULSE 89; RESP 18; TEMP 36.5; O2SAT 97
[2021-07-12 23:48] LABS: Glucose Point of Care 223 mg/dl (65-105)
[2021-07-13] MEDS: LEVOTHYROXINE SODIUM 75 MCG TABLET PO ×2 (05:46→05:47)
[2021-07-13 06:00] VITALS: BP 140/51; PULSE 81; RESP 18; TEMP 36.7; O2SAT 95
[2021-07-13 06:45] LABS: Chloride 106 mmol/L (98-107); Hematocrit 24.6 % (37.0-47.0); Hemoglobin 7.6 g/dL (12.0-15.0); Mean Corpuscular HGB Conc 30.9 g/dl (32-36); Mean Corpuscular Hemoglobin 28.1 pg (26-34); Mean Corpuscular Volume 91.1 fl (80-100); Mean Platelet Volume 12.1 fl (7.4-10.4); Platelet Count Result 92 k/mm3 (150-375); Red Cell Distribution Width 16.1 % (11.5-14.5); White Blood Count 3.8 K/mm3 (4.5-10.0)
[2021-07-13 07:00] LABS: Anion Gap 4 mmol/L (8-16); Blood Urea Nitrogen 3 mg/dL (7-17); Calcium 7.7 mg/dL (8.4-10.2); Carbon Dioxide 24 mmol/L (22-30); Estimated CRCL calculation 83 ml/min; Estimated Glomerular Filt Rate > 60; Glucose 197 mg/dL (65-110); Potassium 3.6 mmol/L (3.4-5.0); Sodium 134 mmol/L (137-145)
[2021-07-13 08:14] LABS: Glucose Point of Care 193 mg/dl (65-105)
[2021-07-13] MEDS: PARoxetine 20 MG TABLET 40 MG PO (09:33)
[2021-07-13] MEDS: PANTOPRAZOLE 40 MG TABLET PO (09:34)
[2021-07-13 11:43] LABS: Glucose Point of Care 205 mg/dl (65-105)
--- NOTE | 2021-07-13 12:52 | PM.DS ---
DS: Admitting Diagnosis Discharge Date 07/13/2021 Admitting Diagnosis anemia dizziness DS: Discharge Diagnosis Discharge Diagnosis (1) Occult blood in stools: Code(s): R19.5 - Other fecal abnormalities Status: Acute (2) Acute GI bleeding: Code(s): K92.2 - Gastrointestinal hemorrhage, unspecified Status: Acute (3) Anemia: Qualifiers: Anemia type: unspecified type Qualified Code(s): D64.9 - Anemia, unspecified Code(s): D64.9 - Anemia, unspecified Status: Acute (4) Bilateral primary osteoarthritis of knee: Code(s): M17.0 - Bilateral primary osteoarthritis of knee Status: Acute (5) Stroke, hemorrhagic: Code(s): I61.9 - Nontraumatic intracerebral hemorrhage, unspecified Status: Acute (6) Hypertension: Qualifiers: Hypertension type: essential hypertension Qualified Code(s): I10 - Essential (primary) hypertension Code(s): I10 - Essential (primary) hypertension Status: Acute (7) Chronic right shoulder pain: Code(s): M25.511 - Pain in right shoulder; G89.29 - Other chronic pain Status: Acute (8) Hypothyroidism (acquired): Code(s): E03.9 - Hypothyroidism, unspecified Status: Acute (9) Mixed hyperlipidemia: Code(s): E78.2 - Mixed hyperlipidemia Status: Acute (10) Type 2 diabetes mellitus with hyperglycemia: Code(s): E11.65 - Type 2 diabetes mellitus with hyperglycemia Status: Acute (11) Steatohepatitis, nonalcoholic: Code(s): K75.81 - Nonalcoholic steatohepatitis (HUBBARD) Status: Acute (12) Hypokalemia: Code(s): E87.6 - Hypokalemia Status: Acute DS: Summary Hospital Course Reason for hospitalization: Chief Complaint: Dizziness Narrative: Patient is 75-year-old female presents to the the emergency department with chief complaint of dizziness. Daughter is at bedside provided the history. The patient reports that this morning there was concern for possible carbon monoxide exposure EMS and the [employer] company was called out which determined there was not a carbon monoxide leak in the house. The patient states that she did stay up last night drink some wine and drink some fruit juice and is a diabetic. The patient was found to have a blood sugar in the 300s which is not usual for her and the patient denied any chest pain denies shortness of breath denied any other complaint. She then came to the ER for evaluation In the ER she was noted to have hemoglobin of 7.5 which is lot lower than her baseline which normal chest few months ago. She does report history of peptic ulcers in the past and had underwent bill rock to surgery in the past. Guaiac test was done in the ER which came back positive as well. In this setting she is admitted for further evaluation and management. Hospital Course: # sp colonscopy and EGD see full reports rpt HB in AM and dc # guaiac positive stool Protonix drip GI consultation in a.m. stop meloxicam # history of iron deficiency anemia on iron supplementation/B12 deficiency # history of peptic ulcer disease status post Billroth 2 surgery in the past # history of hemorrhagic stroke in 2019 and Parkinson's disease # hypertension # hyperlipidemia # hypothyroidism # type 2 diabetes mellitus with hyperglycemia on metformin at home would place on SSI # DVT prophylaxis PAS boots # code status full code patient with a occulat blood in the stool was seen by GI had a EGD and colonoscopy essentially normal as well as patient had a small-bowel follow-through was negative, remains clinically stable her hemoglobin stable, denies any dizziness wants to go home will discharge the patient today Status at Discharge Functional status at discharge: independent ambulation Overall status at discharge: patient is back to baseline Time Spent with Patient Time attestation: Total time spent providing and/or coordinating discharge services: Patient was seen and examin
[2021-07-13 13:48] VITALS: BP 134/52; PULSE 85; RESP 18; TEMP 36.7; O2SAT 94
== END 2021-07-13 18:35 | disposition home or self-care (01) | DRG 379 ==
LOC: ANHED 23:50 → ANH3MEDSUR 07-08 00:32
PROVIDERS: Family Medicine; Hospitalist; Internal Medicine Gastroenterology; Nurse Practitioner; Nurse Practitioner Adult Health; Admitting Provider Internal Medicine; Emergency Provider Emergency Medicine; PCP Internal Medicine; Visit Provider Internal Medicine
PROC: 0DJ08ZZ Inspection of Upper Intestinal Tract, Via Natural or Artificial Opening Endoscopic (ICD-10-PCS; CPT 43235; principal; 2021-07-10 12:00)
PROC: 0DJD8ZZ Inspection of Lower Intestinal Tract, Via Natural or Artificial Opening Endoscopic (ICD-10-PCS; CPT 45378; principal; 2021-07-11 12:30)
DX: K92.2 Gastrointestinal hemorrhage, unspecified (principal); K64.8 Other hemorrhoids; K63.5 Polyp of colon; G20 Parkinson's disease; D64.9 Anemia, unspecified; D50.9 Iron deficiency anemia, unspecified; E53.8 Deficiency of other specified B group vitamins; E11.65 Type 2 diabetes mellitus with hyperglycemia; I10 Essential (primary) hypertension; E03.9 Hypothyroidism, unspecified; K75.81 Nonalcoholic steatohepatitis (NASH); E78.2 Mixed hyperlipidemia; M17.0 Bilateral primary osteoarthritis of knee; M25.511 Pain in right shoulder; G89.29 Other chronic pain; E87.6 Hypokalemia; Z79.84 Long term (current) use of oral hypoglycemic drugs; Z79.899 Other long term (current) drug therapy; Z86.73 Personal history of transient ischemic attack (TIA), and cerebral infarction without residual deficits; Z87.11 Personal history of peptic ulcer disease; Z90.3 Acquired absence of stomach [part of]; Z98.84 Bariatric surgery status
CPT/HCPCS: 36415; 36430; 51701; 74250; 80048; 80053; 81001; 82274; 82728; 82948; 83540; 83550; 83735; 84484; 85014; 85018; 85025; 85027; 85055; 85610; 85730; 86850; 86900; 86901; 86920; 87081; 88305; 93005; 96361; 96365; 96366; 96374; 96375; 96376; 99285; A9270; C1751; C9113; G0378; J1815; J2405; J2704; J7030; J7050; J7060; J7120; P9016

== ENCOUNTER 2021-07-19 11:35 | Outpatient (CLI) | payer OTHER, SELFPAY ==
[2021-07-19 12:43] LABS: Alanine Aminotransferase 21 U/L (4-35); Alkaline Phosphatase 154 U/L (38-126); Anion Gap 10 mmol/L (8-16); Aspartate Amino Transferase 50 U/L (14-36); Bilirubin,Total 1.9 mg/dL (0.2-1.3); Blood Urea Nitrogen 5 mg/dL (7-17); Calcium 8.4 mg/dL (8.4-10.2); Carbon Dioxide 19 mmol/L (22-30); Chloride 109 mmol/L (98-107); Cholesterol 132 mg/dL (0-200); Estimated Glomerular Filt Rate > 60; Glucose 159 mg/dL (65-110); HDL Direct 39 mg/dL; Potassium 3.4 mmol/L (3.4-5.0); Sodium 138 mmol/L (137-145); Triglycerides 101 mg/dL (<150)
[2021-07-19 12:46] LABS: Creatinine Urine 150.5 mg/dL
[2021-07-19 12:50] LABS: MALB Creatinine Ratio 8.4 mg/g (0-30); Microalbumin Urine Random 12.7 mg/L (0-16.7)
[2021-07-19 12:53] LABS: LDL Cholesterol Direct 65 mg/dL
[2021-07-19 13:18] LABS: Hemoglobin A1C 7.7 % (<5.7)
== END 2021-07-19 11:36 | disposition home or self-care (01) ==
PROVIDERS: PCP Internal Medicine; Visit Provider Internal Medicine
DX: I10 Essential (primary) hypertension (principal); E11.65 Type 2 diabetes mellitus with hyperglycemia; E78.5 Hyperlipidemia, unspecified
CPT/HCPCS: 36415; 80053; 80061; 82043; 83036

== ENCOUNTER 2021-07-28 12:29 | Outpatient (CLI) | payer OTHER, SELFPAY ==
[2021-07-28 16:00] LABS: Alanine Aminotransferase 23 U/L (4-35); Albumin Level 3.3 g/dL (3.5-5.1); Alkaline Phosphatase 171 U/L (38-126); Anion Gap 12 mmol/L (8-16); Aspartate Amino Transferase 51 U/L (14-36); Bilirubin,Total 2.2 mg/dL (0.2-1.3); Blood Urea Nitrogen 4 mg/dL (7-17); Calcium 8.9 mg/dL (8.4-10.2); Carbon Dioxide 23 mmol/L (22-30); Chloride 105 mmol/L (98-107); Estimated Glomerular Filt Rate > 60; Glucose 195 mg/dL (65-110); Lactate Dehydrogenase 850 U/L (313-618); Potassium 3.5 mmol/L (3.4-5.0); Sodium 140 mmol/L (137-145)
[2021-07-28 16:10] LABS: Iron 36 ug/dL (37-170)
[2021-07-28 16:21] LABS: Percent Iron Saturation 10 % (20-50)
[2021-07-28 17:09] LABS: Folic Acid 18.9 ng/mL (2.76->20); Vitamin B12 > 1000.0 pg/mL (239-931)
== END 2021-07-28 12:30 | disposition home or self-care (01) ==
PROVIDERS: PCP Internal Medicine; Visit Provider Internal Medicine Hematology & Oncology
DX: D63.8 Anemia in other chronic diseases classified elsewhere (principal)
CPT/HCPCS: 36415; 80053; 82607; 82728; 82746; 83540; 83550; 83615

== ENCOUNTER 2021-08-01 10:24 | Outpatient (CLI) | payer OTHER, SELFPAY ==
[2021-08-01 10:49] LABS: Basophils Absolute Auto 0.1 K/mm3 (0.0-0.1); Eosinophils Absolute Auto 0.7 K/mm3 (0-0.3); Eosinophils Percent Auto 13.7 % (0-4.4); Hematocrit 32.3 % (37.0-47.0); Hemoglobin 9.6 g/dL (12.0-15.0); Immature Granulocyte Absolute 0.01 K/mm3 (0.00-0.031); Immature Granulocyte Percent A 0.2 % (0-0.5); Lymphocytes Absolute Auto 1.27 K/mm3 (0.9-3.2); Lymphocytes Percent Auto 26.4 % (18.3-44.2); Mean Corpuscular HGB Conc 29.7 g/dl (32-36); Mean Corpuscular Hemoglobin 25.1 pg (26-34); Mean Corpuscular Volume 84.3 fl (80-100); Mean Platelet Volume 10.2 fl (7.4-10.4); Monocytes Absolute Auto 0.3 K/mm3 (0.1-0.6); Monocytes Percent Auto 5.8 % (2.6-8.5); Neutrophils Absolute Auto 2.5 K/mm3 (1.3-6.7); Neutrophils Percent Auto 52.9 % (45.5-73.1); Platelet Count Result 136 k/mm3 (150-375); Red Blood Count 3.83 M/mm3 (4.2-5.4); Red Cell Distribution Width 18.2 % (11.5-14.5); White Blood Count 4.8 K/mm3 (4.5-10.0)
[2021-08-01 11:18] LABS: Anisocytosis 1+ (NORMAL); Ovalocytes 1+ (NORMAL)
== END 2021-08-01 10:25 | disposition home or self-care (01) ==
LOC: ANHLAB 10:27
PROVIDERS: PCP Internal Medicine; Visit Provider Internal Medicine Hematology & Oncology
DX: D63.8 Anemia in other chronic diseases classified elsewhere (principal)
CPT/HCPCS: 36415; 85025; 99212; G0463

== ENCOUNTER 2021-09-13 11:34 | Outpatient (CLI) | payer OTHER, SELFPAY ==
[2021-09-13 12:26] LABS: Hematocrit 44.4 % (37.0-47.0); Hemoglobin 13.9 g/dL (12.0-15.0); Immature Platelet Fraction Pct 5.1 % (0.9-11.2); Mean Corpuscular HGB Conc 31.3 g/dl (32-36); Mean Corpuscular Volume 89.3 fl (80-100); Mean Platelet Volume 10.6 fl (7.4-10.4); Platelet Count Result 135 k/mm3 (150-375); Red Blood Count 4.97 M/mm3 (4.2-5.4); Red Cell Distribution Width 25.8 % (11.5-14.5); White Blood Count 5.6 K/mm3 (4.5-10.0)
[2021-09-13 12:45] LABS: Iron 168 ug/dL (37-170)
[2021-09-13 12:54] LABS: Percent Iron Saturation 75 % (20-50)
== END 2021-09-13 11:35 | disposition home or self-care (01) ==
PROVIDERS: PCP Internal Medicine; Visit Provider Internal Medicine Hematology & Oncology
DX: D50.9 Iron deficiency anemia, unspecified (principal)
CPT/HCPCS: 36415; 82728; 83540; 83550; 85027; 85055; 99212; G0463

== ENCOUNTER 2021-11-19 15:40 | Emergency (ER) | payer OTHER, SELFPAY ==
--- NOTE | 2021-11-19 15:47 | ED.FEMALEGU ---
HPI - Female Genitourinary General Chief complaint: Urogenital-Female Stated complaint: UTI Time Seen by Provider: 11/19/21 15:51 Source: patient, family (Daughter), RN notes reviewed and old records reviewed Mode of arrival: ambulatory Limitations: no limitations History of Present Illness HPI Narrative: 75-year-old female presents to the [facility] with complaints of I have a UTI. Has a history of chronic UTIs and sees a urologist. Patient states that her fatigue, urinary symptoms, fevers all started Saturday, 2 days ago. Has just finished Augmentin. Had been on Macrobid prior to that. MD elicited complaint: UTI Related Data Home Medications Medication Instructions Recorded Confirmed ascorbic acid (vitamin C) 500 mg 500 mg PO DAILY 09/17/19 11/19/21 tablet Allergies Allergy/AdvReac Type Severity Reaction Status Date / Time clavulanic acid Allergy Intermediate RASH Verified 11/19/21 15:46 amoxicillin Allergy Unknown Rash Verified 11/19/21 15:46 latex Allergy Unknown Rash Verified 11/19/21 15:46 Sulfa (Sulfonamide Allergy Unknown Rash Verified 11/19/21 15:46 Antibiotics) vitamin A Allergy Unknown eyes swell Verified 11/19/21 15:46 Review of Systems Review of Systems: All systems reviewed & are unremarkable except as noted in HPI and below Constitutional: Constitutional: Reports as per HPI, Reports chills and Reports fatigue Eyes: Eyes: Reports no additional eye complaints ENT: Reports system reviewed and no additional complaints, except as documented Cardiovascular: Cardiovascular: Reports no additional cardiovascular complaints Respiratory: Respiratory: Reports no additional respiratory complaints Gastrointestinal: Gastrointestinal: Reports as per HPI, Denies abdominal pain, Denies diarrhea, Reports nausea and Denies vomiting Genitourinary: Genitourinary: Reports as per HPI, Denies nocturia, Reports dysuria, Denies flank pain and Denies vaginal discharge Musculoskeletal: Musculoskeletal: Reports no additional musculoskeletal complaints and Denies back pain Integumentary/Breasts: Skin/Breast: Reports system reviewed and no additional complaints, except as docu Neurologic: Reports system reviewed and no additional complaints, except as documented Psychiatric: Psychiatric: Reports no additional psychiatric complaints Endocrine: Endocrine: Reports as per HPI and Reports fatigue Allergic/Immunologic: Allergic/Immunologic: Reports no additional allergic/immunologic complaints PMFSH Past Medical History Medical History Anemia Bilateral primary osteoarthritis of knee Diabetes Hypertension Hypothyroidism Pancytopenia Stroke, hemorrhagic Surgical History Surgical History H/O rotator cuff surgery (~10/2009) Right H/O: hysterectomy History of partial gastrectomy History of tonsillectomy (~1950) Status post closed fracture of right femur (~1982) treated with femoral cruzito at [place] Family History Family History Sibling Family history of bipolar disorder Mother Family history of hypothyroidism Father Family history of hypothyroidism Other Cerebrovascular accident Depression Diabetes mellitus Family history of alcoholism Family history of arthritis Family history of attention deficit hyperactivity disorder (ADHD) Family history of blood dyscrasia Family history of congestive heart failure Family history of thyroid disease Social History Social History Smoking status: Never smoker Second hand tobacco smoke exposure: No Alcohol intake: current Drinks per week: 14 Substance use: never Additional living arrangements comments: Gender identity (if verbalized by the patient): Female Sexual Orientation (if Verbalized by the Patient): Stra
[2021-11-19 16:05] VITALS: BP 174/57; PULSE 85; RESP 18; TEMP 38.4; O2SAT 95
== END 2021-11-19 16:18 | disposition short-term general hospital (02) ==
PROVIDERS: Emergency Provider Nurse Practitioner; PCP Internal Medicine
DX: R30.0 Dysuria (principal); R50.9 Fever, unspecified; I10 Essential (primary) hypertension; E03.9 Hypothyroidism, unspecified; E11.9 Type 2 diabetes mellitus without complications
CPT/HCPCS: 99212; G0463

== ENCOUNTER 2021-11-19 16:54 | Emergency (ER) | payer OTHER, SELFPAY ==
[2021-11-19] VITALS (13 sets, daily range): BP systolic 155–187; BP diastolic 62–114; PULSE 72–95; RESP 14–24; TEMP 37.6; O2SAT 95–100
[2021-11-19 19:12] LABS: Add Urine Microscopic? YES; Appearance Urine Cloudy (Clear); Bacteria Urine Trace /hpf; Bilirubin Urine Negative (Negative); Blood Urine Negative (Negative); Color Urine Amber (Yellow); Glucose Urine UA Negative (Negative); Ketones Urine Negative (Negative); Leukocyte Esterase Ur Trace LEU/UL (Negative); Mucus Urine Rare /lpf; Nitrate Urine Positive (Negative); Protein Urine Negative (Negative); RBC Urine 0-2 /hpf (0-2); Specific Grav Ur 1.016 (1.001-1.035); Squamous Epithelial Cell Urine Rare /hpf (Few); Urobilinogen Urine Negative mg/dL (<2.0)
[2021-11-19 20:21] LABS: Basophils Absolute Auto 0.1 K/mm3 (0.0-0.1); Basophils Percent Auto 1.2 % (0.2-1.2); Eosinophils Absolute Auto 0.1 K/mm3 (0-0.3); Eosinophils Percent Auto 3.4 % (0-4.4); Hematocrit 43.5 % (37.0-47.0); Hemoglobin 14.1 g/dL (12.0-15.0); Immature Granulocyte Absolute 0.01 K/mm3 (0.00-0.031); Immature Granulocyte Percent A 0.2 % (0-0.5); Lymphocytes Absolute Auto 1.22 K/mm3 (0.9-3.2); Mean Corpuscular HGB Conc 32.4 g/dl (32-36); Mean Corpuscular Hemoglobin 32.6 pg (26-34); Mean Corpuscular Volume 100.5 fl (80-100); Mean Platelet Volume 10.2 fl (7.4-10.4); Monocytes Absolute Auto 0.3 K/mm3 (0.1-0.6); Monocytes Percent Auto 7.1 % (2.6-8.5); Neutrophils Absolute Auto 2.4 K/mm3 (1.3-6.7); Neutrophils Percent Auto 58.1 % (45.5-73.1); Platelet Count Result 84 k/mm3 (150-375); Red Blood Count 4.33 M/mm3 (4.2-5.4); Red Cell Distribution Width 15.3 % (11.5-14.5); White Blood Count 4.1 K/mm3 (4.5-10.0)
[2021-11-19 20:33] LABS: Anion Gap 6 mmol/L (8-16); Blood Urea Nitrogen 6 mg/dL (7-17); Calcium 8.6 mg/dL (8.4-10.2); Carbon Dioxide 23 mmol/L (22-30); Chloride 106 mmol/L (98-107); Estimated CRCL calculation 103 ml/min; Estimated Glomerular Filt Rate > 60; Glucose 166 mg/dL (65-110); Potassium 3.6 mmol/L (3.4-5.0); Sodium 135 mmol/L (137-145)
--- NOTE | 2021-11-19 20:47 | PC.NURSE ---
pt refuses IV at this time, VIRAL Lopez notified.
--- NOTE | 2021-11-19 21:28 | ED.FEMALEGU ---
HPI - Female Genitourinary General Chief complaint: Urogenital-Female Stated complaint: UTI concern for sepsis Time Seen by Provider: 11/19/21 19:03 History of Present Illness HPI Narrative: Patient is a 75-year-old female who presents ER with dysuria. Ongoing over the last couple days. Associate with urinary frequency and urgency. No retention. Has history of recurrent UTIs. Recently finished Augmentin for E. coli infection that was resistant to fluoroquinolones. No fevers or chills or sweats. No abdominal discomfort. Reports mild back discomfort but no lateralizing flank pain. Related Data Home Medications Medication Instructions Recorded Confirmed ascorbic acid (vitamin C) 500 mg 500 mg PO DAILY 09/17/19 11/19/21 tablet Allergies Allergy/AdvReac Type Severity Reaction Status Date / Time clavulanic acid Allergy Intermediate RASH Verified 11/19/21 15:46 amoxicillin Allergy Unknown Rash Verified 11/19/21 15:46 latex Allergy Unknown Rash Verified 11/19/21 15:46 Sulfa (Sulfonamide Allergy Unknown Rash Verified 11/19/21 15:46 Antibiotics) vitamin A Allergy Unknown eyes swell Verified 11/19/21 15:46 Review of Systems Review of Systems: All systems reviewed & are unremarkable except as noted in HPI and below Constitutional: Constitutional: Denies chills Gastrointestinal: Gastrointestinal: Denies abdominal pain, Denies nausea and Denies vomiting Genitourinary: Genitourinary: Reports nocturia, Reports dysuria and Reports flank pain PMFSH Past Medical History Medical History Anemia Bilateral primary osteoarthritis of knee Diabetes Hypertension Hypothyroidism Pancytopenia Stroke, hemorrhagic Surgical History Surgical History H/O rotator cuff surgery (~10/2009) Right H/O: hysterectomy History of partial gastrectomy History of tonsillectomy (~1950) Status post closed fracture of right femur (~1982) treated with femoral cruzito at [place] Family History Family History Sibling Family history of bipolar disorder Mother Family history of hypothyroidism Father Family history of hypothyroidism Other Cerebrovascular accident Depression Diabetes mellitus Family history of alcoholism Family history of arthritis Family history of attention deficit hyperactivity disorder (ADHD) Family history of blood dyscrasia Family history of congestive heart failure Family history of thyroid disease Social History Social History Smoking status: Never smoker Second hand tobacco smoke exposure: No Alcohol intake: current Drinks per week: 14 Substance use: never Additional living arrangements comments: Gender identity (if verbalized by the patient): Female Sexual Orientation (if Verbalized by the Patient): Straight or Heterosexual Spiritual care concerns: No Exam Narrative: GENERAL: Well-appearing, well-nourished, and in no acute distress. HEAD: Normocephalic, atraumatic. CHEST: Clear to auscultation. No respiratory distress. HEART: Regular rate and rhythm. Normal peripheral pulses. ABDOMEN: Soft, nontender, nondistended. EXTREMITIES: Normal range of motion. No edema. SKIN: Warm, dry, no rash. NEURO: Alert and oriented x3. PSYCH: Normal mood and affect. Course Course Emergency Course: Resting comfortably. Informed of results. Discharged with cephalexin. Vital Signs Vital signs: Vital Signs Temperature 99.7 F H 11/19/21 16:57 Pulse Rate 87 11/19/21 16:57 Respiratory Rate 16 11/19/21 16:57 Blood Pressure 178/75 H 11/19/21 16:57 Pulse Oximetry 96 11/19/21 16:57 Temperature 99.7 F H 11/19/21 16:57 Pulse Rate 95 11/19/21 22:34 Respiratory Rate 18 11/19/21 22:34 Blood Pressure 166/68 H 11/19/21 22:34 Pulse Oximetry 98
== END 2021-11-19 21:57 | disposition home or self-care (01) ==
PROVIDERS: Emergency Medicine; Emergency Provider Emergency Medicine; PCP Internal Medicine
DX: N39.0 Urinary tract infection, site not specified (principal); M19.90 Unspecified osteoarthritis, unspecified site; E11.9 Type 2 diabetes mellitus without complications; I10 Essential (primary) hypertension; E03.9 Hypothyroidism, unspecified; Z87.440 Personal history of urinary (tract) infections; Z86.2 Personal history of diseases of the blood and blood-forming organs and certain disorders involving the immune mechanism; Z86.73 Personal history of transient ischemic attack (TIA), and cerebral infarction without residual deficits; Z88.0 Allergy status to penicillin; Z88.2 Allergy status to sulfonamides; Z88.8 Allergy status to other drugs, medicaments and biological substances; Z91.040 Latex allergy status; Z90.89 Acquired absence of other organs
CPT/HCPCS: 36415; 80048; 81001; 85025; 87077; 87086; 87186; 99283

== ENCOUNTER 2021-12-28 11:23 | Outpatient (CLI) | payer OTHER, SELFPAY ==
[2021-12-28 12:02] LABS: Basophils Absolute Auto 0.1 K/mm3 (0.0-0.1); Eosinophils Absolute Auto 0.4 K/mm3 (0-0.3); Eosinophils Percent Auto 7.3 % (0-4.4); Hematocrit 39.3 % (37.0-47.0); Hemoglobin 12.7 g/dL (12.0-15.0); Immature Granulocyte Absolute 0.01 K/mm3 (0.00-0.031); Immature Granulocyte Percent A 0.2 % (0-0.5); Immature Platelet Fraction Pct 5.7 % (0.9-11.2); Lymphocytes Absolute Auto 1.58 K/mm3 (0.9-3.2); Lymphocytes Percent Auto 32.2 % (18.3-44.2); Mean Corpuscular HGB Conc 32.3 g/dl (32-36); Mean Corpuscular Hemoglobin 33.1 pg (26-34); Mean Corpuscular Volume 102.3 fl (80-100); Mean Platelet Volume 11.1 fl (7.4-10.4); Monocytes Absolute Auto 0.4 K/mm3 (0.1-0.6); Monocytes Percent Auto 7.3 % (2.6-8.5); Neutrophils Absolute Auto 2.5 K/mm3 (1.3-6.7); Platelet Count Result 139 k/mm3 (150-375); Red Blood Count 3.84 M/mm3 (4.2-5.4); Red Cell Distribution Width 13.7 % (11.5-14.5); White Blood Count 4.9 K/mm3 (4.5-10.0)
[2021-12-28 12:17] LABS: Iron 51 ug/dL (37-170)
[2021-12-28 12:26] LABS: Percent Iron Saturation 14 % (20-50)
== END 2021-12-28 11:24 | disposition home or self-care (01) ==
LOC: ANHLAB 11:26
PROVIDERS: PCP Internal Medicine; Visit Provider Internal Medicine Hematology & Oncology
DX: D64.9 Anemia, unspecified (principal)
CPT/HCPCS: 36415; 82728; 83540; 83550; 85025; 85055; 99212; G0463

== ENCOUNTER 2022-03-09 10:45 | Outpatient (CLI) | payer OTHER, SELFPAY ==
--- NOTE | 2022-03-09 11:24 | ECG_ITS ---
Measurements Intervals Roulette Rate: 72 P: -83 PA: 346 QRS: -5 QRSD: 89 T: 17 QT: 403 QTc: 444 Interpretive Statements ELECTRICAL BASELINE ARTIFACT/POOR DATA QUALITY UNABLE TO DIAGNOSE ATRIAL RHYTHM BECAUSE OF BASELINE ELECTRICAL ARTIFACT REGULAR ATRIAL RHYTHM LEFT VENTRICULAR HYPERTROPHY BY VOLTAGE CRITERIA ABNORMAL ECG Electronically Signed On 03-09-2022 12:07:02 CDT by Elmo Ortega M.D.
[2022-03-09 11:28] LABS: Anion Gap 10 mmol/L (8-16); Blood Urea Nitrogen 5 mg/dL (7-17); Calcium 8.5 mg/dL (8.4-10.2); Carbon Dioxide 23 mmol/L (22-30); Chloride 101 mmol/L (98-107); Estimated Glomerular Filt Rate > 60; Glucose 323 mg/dL (65-110); Potassium 3.5 mmol/L (3.4-5.0); Sodium 134 mmol/L (137-145)
== END 2022-03-09 10:46 | disposition home or self-care (01) ==
LOC: ANHLAB 10:51
PROVIDERS: PCP Family Medicine; Visit Provider Dentist
DX: Z13.6 Encounter for screening for cardiovascular disorders (principal); R94.31 Abnormal electrocardiogram [ECG] [EKG]
CPT/HCPCS: 36415; 80048; 93005; 99212; G0463

== ENCOUNTER 2022-08-01 13:41 | Outpatient (CLI) | payer OTHER, SELFPAY ==
--- NOTE | 2022-08-01 13:57 | ECHO_ITS ---
Patient Info Name: Laure Zaragoza Age: 76 years : 1945 Gender: Female Ht: 69 in Wt: 180 lbs BSA: 2.01 m2 HR: 79 bpm BP: 161 / 69 mmHg Technical Quality: Good Exam Date: 08/01/2022 2:12 PM Exam Location: [facility] Patient Status: Outpatient Admit Date: 08/01/2022 Staff Ordering Physician: Tariq Kang DO Director Of Human Resources: Jaja Kearney [employer] Attending Provider: Tariq Kang DO Referring Physician: Jorge Luis PRYOR; Exam Type: CA echo doppler color flow Study Info Indications R01.1 - Cardiac murmur, unspecified Complete two-dimensional, color flow and Doppler transthoracic echocardiogram is performed. Summary 1. Complete two-dimensional, color flow and Doppler transthoracic echocardiogram is performed. 2. Left ventricular chamber dimension is normal. 3. Left ventricular systolic function is normal, estimated at 65-70%. 4. The left ventricular diastolic function is grade I diastolic dysfunction. 5. E/e' 12 is mildly elevated. 6. Left atrial chamber dimension is moderately enlarged. 7. There is moderate aortic valve sclerosis. 8. There is mild to moderate aortic valve stenosis with a peak velocity of 320 cm/s, mean gradient of 20 mmHg, and aortic valve area of 1.6 cm2. 9. The mitral valve has mildly calcified annulus. 10. There is mild mitral valve regurgitation. 11. There is trace tricuspid valve regurgitation. 12. No pulmonary hypertension, estimated pulmonary arterial systolic pressure is 33 mmHg. 13. There is small right sided pericardial effusion. Left Ventricle E/e' 12 is mildly elevated. Left ventricular chamber dimension is normal. Left ventricular systolic function is normal, estimated at 65-70%. The left ventricular diastolic function is grade I diastolic dysfunction. Right Ventricle Right ventricular systolic function is normal and with normal TAPSE 2.7 cm. Right ventricular chamber dimension is normal. Left Atria Left atrial chamber dimension is moderately enlarged. Right Atria Right atrial chamber dimension is normal. Aortic Valve The aortic valve is trileaflet. There is moderate aortic valve sclerosis. There is mild to moderate aortic valve stenosis with a peak velocity of 320 cm/s, mean gradient of 20 mmHg, and aortic valve area of 1.6 cm2. There is no aortic valve regurgitation. Pulmonic Valve There is no pulmonic regurgitation. Mitral Valve The mitral valve has mildly calcified annulus. There is no mitral valve stenosis. There is mild mitral valve regurgitation. Tricuspid Valve There is trace tricuspid valve regurgitation. No pulmonary hypertension, estimated pulmonary arterial systolic pressure is 33 mmHg. Pericardium/Pleural There is small right sided pericardial effusion. No cardiac tamponade. Inferior Vena Cava Normal inferior vena cava with >50% collapse upon inspiration consistent with normal right atrial pressure, 5 mmHg. Aorta The aortic root size at the sinus of Valsalva is normal. Left Ventricular Outflow Tract Name Value Normal LVOT 2D LVOT Diameter 2.0 cm LVOT Doppler LVOT Peak Gradient 9 mmHg
== END 2022-08-01 13:42 | disposition home or self-care (01) ==
PROVIDERS: PCP Family Medicine; Visit Provider Family Medicine
DX: R01.1 Cardiac murmur, unspecified (principal)
CPT/HCPCS: 93306

== ENCOUNTER 2022-08-10 11:44 | Outpatient (CLI) | payer OTHER, SELFPAY ==
--- NOTE | ~2022-08-10 | XR_ITS ---
MODIFIED ESOPHAGRAM HISTORY: Dysphagia. TECHNIQUE: Modified barium esophagram was performed on 08/10/2022. I administered fluoroscopy and perf ormed the exam with speech pathologist. Patient was seated for lateral fluoroscopic imaging for ned stion of thin liquids, pudding, solids and quantified amounts, followed by thin liquids in uncontroll ed amounts. This was recorded on tape. A single fluoroscopic spot image was also recorded. The DAP fo r this procedure was 1.446 Gycm2. The amount of fluoroscopy time used during this procedure was 2.3 m inutes. FINDINGS: Oral stage: Adequate function. Pharyngeal stage: Adequate function. Cervical/esophageal stage: Adequate function. Other: Moderate cervical spondylosis. IMPRESSION: Patient tolerated regular consistency oral feedings in the upright position. Please jolene elate with speech pathologist findings and specific feeding recommendations. Reviewed, dictated and finalized at location A. R DIAMETER GRINDER TOOL IMPRESSION: Patient tolerated regular consistency oral feedings in the upright position. Please correlate with speech pathologist findings and specific feedi ng recommendations.
[2022-08-10 12:48] LABS: Alanine Aminotransferase 38 U/L (6-35); Albumin Level 3.1 g/dL (3.5-5.1); Alkaline Phosphatase 243 U/L (38-126); Anion Gap 7 mmol/L (8-16); Aspartate Amino Transferase 100 U/L (14-36); Bilirubin,Total 4.8 mg/dL (0.2-1.3); Blood Urea Nitrogen 6 mg/dL (7-17); Carbon Dioxide 28 mmol/L (22-30); Chloride 101 mmol/L (98-107); Cholesterol 136 mg/dL (0-200); Estimated Glomerular Filt Rate > 60; Glucose 166 mg/dL (65-110); HDL Direct 30 mg/dL; Potassium 3.7 mmol/L (3.4-5.0); Sodium 136 mmol/L (137-145); Triglycerides 125 mg/dL (<150)
[2022-08-10 12:59] LABS: LDL Cholesterol Direct 67 mg/dL
[2022-08-10 13:18] LABS: Hemoglobin A1C 7.4 % (<5.7)
--- NOTE | 2022-08-10 16:01 | REHSTMBS ---
Assessment and note entered by Johnna Francisco, OFFICE MACHINE REPAIR [employer] SUPERVISOR Modified Barium Swallow Evaluation Feeding Type Recommended Oral Food Consistency Regular, Level 7 Liquid Consistency Thin (0) Treatment Recommendations Effortful Swallow,Laryngeal Elevation Exerc,Tongue Base Exercise ST Clinical Summary MODIFIED BARIUM SWALLOW STUDY This patient was seen for a Modified Barium Swallow study at the request of her physician. Patient reports history of three strokes in the past 2-3 years although she stated she did not have residual effects. Patient also stated she had her teeth pulled this past February and has received upper and lower dentures. She admits to eating too quickly and not chewing adequately. Patient was presented with thin liquid contrast medium per spoon, cup, and straw, pudding mixed with semi-solid contrast medium, and mixed fruit and awilda crackers coated with the semi-solid mixture. Patient exhibited adequate swallows with no evidence of penetration or aspiration. Results indicate this patient's swallowing skills are grossly within normal limits. She was instructed to cut food into small pieces, take small bites and sips, and to chew thoroughly. Additional instructions and exercises will be presented at the follow-up outpatient setting next week. Patient will be seen twice weekly for 2-4 weeks to address safe swallowing guidelines and swallowing strengthening exercises to assist with consuming solid foods. Thank you for this referral.
== END 2022-08-10 11:45 | disposition home or self-care (01) ==
PROVIDERS: PCP Family Medicine; Visit Provider Family Medicine
DX: R13.10 Dysphagia, unspecified (principal); I61.9 Nontraumatic intracerebral hemorrhage, unspecified; E11.9 Type 2 diabetes mellitus without complications; E78.2 Mixed hyperlipidemia; E03.9 Hypothyroidism, unspecified; I10 Essential (primary) hypertension
CPT/HCPCS: 36415; 80053; 80061; 83036; 84443; 92611; 99212; G0463

== ENCOUNTER 2022-08-13 17:43 | Emergency (ER) | payer OTHER, SELFPAY ==
--- NOTE | ~2022-08-13 | XR_ITS ---
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 RESULT: Lines, tubes, and devices: Surgical clips over the GE junction. Lungs and pleura: Increasing diffuse reticular opacities and cuffing. Cardiomediastinal silhouette: Stable. Other: No acute osseous or upper abdominal finding. IMPRESSION: Pulmonary opacities may represent mild interstitial edema or bronchiolitis overlying chronic changes of interstitial lung disease. Reviewed, dictated and finalized at location K. PHOTO OPERATOR IMPRESSION: Pulmonary opacities may represent mild interstitial edema or bronchiolitis over lying chronic changes of interstitial lung disease.
[2022-08-13 17:56] VITALS: BP 157/66; PULSE 91; RESP 16; TEMP 37.2; O2SAT 93
--- NOTE | 2022-08-13 18:40 | ED.URI ---
HPI - URI/Sore Throat General Chief Complaint: Upper Respiratory Infection Stated Complaint: cough, fever Time Seen by Provider: 08/13/22 18:30 Source: patient, family, RN notes reviewed and old records reviewed Mode of arrival: ambulatory Limitations: no limitations History of Present Illness HPI Narrative: 76-year-old female who presents to [facility] with complaints of having COVID July 23 with continued cough, congestion continuing with patient having low grade fever again starting last night up to 100F. Patient reports that she has been taking Mucinex for her symptoms. Patient reports that she has been coughing so much in the morning that she has been throwing up. Patient reports that cough is dry otherwisw. reports she feels almost worse now than when she had COVID. MD elicited complaint: fever and cough Pertinent past history: other (Covid July 23) Pain scale (0-10): 3 Treatments prior to arrival: acetaminophen and other (Mucinex) Related Data Home Medications Medication Instructions Recorded Confirmed ascorbic acid (vitamin C) 500 mg 500 mg PO DAILY 09/17/19 08/13/22 tablet Allergies Allergy/AdvReac Type Severity Reaction Status Date / Time clavulanic acid Allergy Intermediate RASH Verified 08/13/22 18:01 amoxicillin Allergy Unknown Rash Verified 08/13/22 18:01 latex Allergy Unknown Rash Verified 08/13/22 18:01 Sulfa (Sulfonamide Allergy Unknown Rash Verified 08/13/22 18:01 Antibiotics) vitamin A Allergy Unknown eyes swell Verified 08/13/22 18:01 Review of Systems Review of Systems: CONSTITUTIONAL: Reports malaise, chills, sweats, or fever. EYES: Denies visual changes, redness, or discharge. ENT: Reports rhinorrhea, congestion, no sinus pain,no otalgia no sore throat. CARDIOVASCULAR: Denies chest pain, palpitations, or edema. RESPIRATORY: Reports cough.? Denies dyspnea. GASTROINTESTINAL: Denies abdominal pain, nausea, episodes of vomiting with coughing,nodiarrhea SKIN: Denies rash or itching. MUSCULOSKELETAL: some generalized myalgia. NEUROLOGIC: Denies headache. All systems reviewed & are unremarkable except as noted in HPI and below PMFSH Past Medical History Medical History (Updated 08/15/22 @ 18:02 by Rosie Demarco NP) Anemia Bilateral primary osteoarthritis of knee Diabetes Hypertension Hypothyroidism Overactive bladder Interstim Pancytopenia Stroke, hemorrhagic Surgical History Surgical History H/O rotator cuff surgery (~10/2009) Right H/O: hysterectomy History of partial gastrectomy History of tonsillectomy (~1950) Status post closed fracture of right femur (~1982) treated with femoral cruzito at [place] Family History Family History Sibling Family history of bipolar disorder Mother Family history of hypothyroidism Father Family history of hypothyroidism Other Cerebrovascular accident Depression Diabetes mellitus Family history of alcoholism Family history of arthritis Family history of attention deficit hyperactivity disorder (ADHD) Family history of blood dyscrasia Family history of congestive heart failure Family history of thyroid disease Social History Social History Smoking status: Never smoker Second hand tobacco smoke exposure: No Alcohol intake: current Drinks per week: 14 Substance use: never Lack of Transportation: No Living arrangements: with family Additional living arrangements comments: Occupation/Education: retired Gender identity (if verbalized by the patient): Female Sexual Orientation (if Verbalized by the Patient): Straight or Heterosexual Spiritual care concerns: No Comments At time of signature, agree with nursing past medical, surgical, social and family history. There is no relevant family history pertinent t
== END 2022-08-13 19:01 | disposition home or self-care (01) ==
PROVIDERS: Emergency Provider Registered Nurse; PCP Family Medicine
DX: J21.9 Acute bronchiolitis, unspecified (principal); R05.9 Cough, unspecified; U09.9 Post COVID-19 condition, unspecified; M17.0 Bilateral primary osteoarthritis of knee; E11.9 Type 2 diabetes mellitus without complications; I10 Essential (primary) hypertension; E03.9 Hypothyroidism, unspecified; Z86.73 Personal history of transient ischemic attack (TIA), and cerebral infarction without residual deficits
CPT/HCPCS: 71046; 99213; G0463

== ENCOUNTER 2022-08-21 12:37 | Outpatient (CLI) | payer OTHER, SELFPAY ==
[2022-08-21 13:11] LABS: Basophils Percent Auto 0.4 % (0.2-1.2); Eosinophils Absolute Auto 0.5 K/mm3 (0-0.3); Eosinophils Percent Auto 7.7 % (0-4.4); Hematocrit 40.3 % (37.0-47.0); Hemoglobin 13.7 g/dL (12.0-15.0); Immature Granulocyte Absolute 0.03 K/mm3 (0.00-0.031); Immature Granulocyte Percent A 0.4 % (0-0.5); Lymphocytes Absolute Auto 2.39 K/mm3 (0.9-3.2); Lymphocytes Percent Auto 34.9 % (18.3-44.2); Mean Corpuscular Hemoglobin 34.6 pg (26-34); Mean Corpuscular Volume 101.8 fl (80-100); Mean Platelet Volume 9.9 fl (7.4-10.4); Monocytes Absolute Auto 0.5 K/mm3 (0.1-0.6); Monocytes Percent Auto 6.9 % (2.6-8.5); Neutrophils Absolute Auto 3.4 K/mm3 (1.3-6.7); Neutrophils Percent Auto 49.7 % (45.5-73.1); Nucleated Red Blood Cells Perc 0.3 % (0.0-0.2); Platelet Count Result 107 k/mm3 (150-375); Red Blood Count 3.96 M/mm3 (4.2-5.4); White Blood Count 6.9 K/mm3 (4.5-10.0)
== END 2022-08-21 12:38 | disposition home or self-care (01) ==
PROVIDERS: PCP Family Medicine; Visit Provider Family Medicine
DX: R53.83 Other fatigue (principal)
CPT/HCPCS: 36415; 85025; 99212; G0463

== ENCOUNTER 2022-08-29 10:40 | Outpatient (CLI) | payer OTHER, SELFPAY ==
--- NOTE | ~2022-08-29 | US_ITS ---
Limited Abdominal Sonogram: Real-time sonographic imaging of the right upper quadrant was performed. Clinical History: Abnormal bilirubin Findings: The liver appears somewhat nodular and echogenic. No focal mass lesion or biliary dilatati on evident. The gallbladder is well probably completely filled with stones resulting in wall echo sh adow complex. The common bile duct measures 5 mm. The visualized pancreas, aorta, and IVC are unrema rkable. Small amount of abdominal ascites present. Impression: Gallbladder is probably completely filled with stones. Probable cirrhotic liver with small amount of ascites. Portal vein flow directionality was unable to be determined on this exam. Reviewed, dictated and finalized at [facility]. AND MOLD FINISHER Impression: Gallbladder is probably completely filled with stones. Probable cirrhotic liver with small amount of ascites. Portal vein flow directi onality was unable to be determined on this exam.
== END 2022-08-29 10:41 | disposition home or self-care (01) ==
PROVIDERS: PCP Family Medicine; Visit Provider Family Medicine
DX: E80.6 Other disorders of bilirubin metabolism (principal)
CPT/HCPCS: 76705

== ENCOUNTER 2022-09-11 12:35 | Outpatient (CLI) | payer OTHER, SELFPAY ==
[2022-09-11 13:15] LABS: Basophils Absolute Auto 0.1 K/mm3 (0.0-0.1); Basophils Percent Auto 1.2 % (0.2-1.2); Eosinophils Absolute Auto 0.3 K/mm3 (0-0.3); Eosinophils Percent Auto 6.1 % (0-4.4); Hematocrit 42.5 % (37.0-47.0); Immature Granulocyte Absolute 0.01 K/mm3 (0.00-0.031); Immature Granulocyte Percent A 0.2 % (0-0.5); Lymphocytes Absolute Auto 1.08 K/mm3 (0.9-3.2); Lymphocytes Percent Auto 25.5 % (18.3-44.2); Mean Corpuscular HGB Conc 32.9 g/dl (32-36); Mean Corpuscular Hemoglobin 36.3 pg (26-34); Mean Corpuscular Volume 110.1 fl (80-100); Mean Platelet Volume 9.9 fl (7.4-10.4); Monocytes Absolute Auto 0.4 K/mm3 (0.1-0.6); Monocytes Percent Auto 9.9 % (2.6-8.5); Neutrophils Absolute Auto 2.4 K/mm3 (1.3-6.7); Neutrophils Percent Auto 57.1 % (45.5-73.1); Platelet Count Result 136 k/mm3 (150-375); Red Blood Count 3.86 M/mm3 (4.2-5.4); Red Cell Distribution Width 18.3 % (11.5-14.5); White Blood Count 4.2 K/mm3 (4.5-10.0)
[2022-09-11 13:27] LABS: Iron 144 ug/dL (37-170)
[2022-09-11 13:36] LABS: Percent Iron Saturation 67 % (20-50)
[2022-09-11 13:57] LABS: Burr Cells 1+ (NORMAL)
[2022-09-11 13:58] LABS: Schistocytes Rare (NORMAL)
== END 2022-09-11 12:36 | disposition home or self-care (01) ==
PROVIDERS: PCP Family Medicine; Visit Provider Internal Medicine Hematology & Oncology
DX: D69.6 Thrombocytopenia, unspecified (principal); D61.818 Other pancytopenia; D64.9 Anemia, unspecified
CPT/HCPCS: 36415; 82728; 83540; 83550; 85025; 99212; G0463

== ENCOUNTER 2022-10-05 17:20 | Outpatient (CLI) | payer OTHER, SELFPAY ==
--- NOTE | ~2022-10-05 | XR_ITS ---
XR chest 2V 10/05/2022 17:42 Indication: Dyspnea. Respiratory symptoms. Procedure: PA and lateral views of the chest Comparison: Comparison to multiple prior studies sequentially, with oldest reviewed study dated 05/22. Findings: There are coarse peripheral interstitial infiltrates, unchanged from prior study allowing f or differences of technique. Heart size normal. There is scoliosis. There is a subacute/chronic right humeral neck fracture with incomplete union. Impression: 1: Stable bilateral coarse interstitial infiltrates which may represent atypical pneumonia, chronic e ravi or interstitial lung disease. Reviewed, dictated and finalized at location A. Impression: 1: Stable bilateral coarse interstitial infiltrates which may represent atypica l pneumonia, chronic edema or interstitial lung disease.
== END 2022-10-05 17:21 | disposition home or self-care (01) ==
PROVIDERS: PCP Family Medicine; Visit Provider Family Medicine
DX: J39.8 Other specified diseases of upper respiratory tract (principal)
CPT/HCPCS: 71046

== ENCOUNTER 2022-10-10 09:12 | Outpatient (CLI) | payer OTHER, SELFPAY ==
[2022-10-10 09:44] LABS: Basophils Absolute Auto 0.1 K/mm3 (0.0-0.1); Basophils Percent Auto 1.3 % (0.2-1.2); Eosinophils Absolute Auto 0.4 K/mm3 (0-0.3); Eosinophils Percent Auto 9.8 % (0-4.4); Hematocrit 38.9 % (37.0-47.0); Hemoglobin 12.9 g/dL (12.0-15.0); Immature Granulocyte Absolute 0.01 K/mm3 (0.00-0.031); Immature Granulocyte Percent A 0.3 % (0-0.5); Immature Platelet Fraction Pct 5.3 % (0.9-11.2); Lymphocytes Absolute Auto 1.71 K/mm3 (0.9-3.2); Lymphocytes Percent Auto 43.1 % (18.3-44.2); Mean Corpuscular HGB Conc 33.2 g/dl (32-36); Mean Corpuscular Volume 108.7 fl (80-100); Mean Platelet Volume 10.6 fl (7.4-10.4); Monocytes Absolute Auto 0.2 K/mm3 (0.1-0.6); Monocytes Percent Auto 5.5 % (2.6-8.5); Neutrophils Absolute Auto 1.6 K/mm3 (1.3-6.7); Platelet Count Result 106 k/mm3 (150-375); Red Blood Count 3.58 M/mm3 (4.2-5.4); Red Cell Distribution Width 13.8 % (11.5-14.5)
[2022-10-10 10:01] LABS: Alanine Aminotransferase 26 U/L (6-35); Albumin Level 2.9 g/dL (3.5-5.1); Alkaline Phosphatase 187 U/L (38-126); Anion Gap 2 mmol/L (8-16); Aspartate Amino Transferase 57 U/L (14-36); Bilirubin,Total 4.7 mg/dL (0.2-1.3); Blood Urea Nitrogen 6 mg/dL (7-17); Calcium 8.4 mg/dL (8.4-10.2); Carbon Dioxide 28 mmol/L (22-30); Chloride 108 mmol/L (98-107); Estimated Glomerular Filt Rate > 60; Glucose 145 mg/dL (65-110); Potassium 3.8 mmol/L (3.4-5.0); Sodium 138 mmol/L (137-145)
[2022-10-10 10:50] LABS: Iron 119 ug/dL (37-170)
[2022-10-10 11:06] LABS: Percent Iron Saturation 51 % (20-50)
== END 2022-10-10 09:13 | disposition home or self-care (01) ==
LOC: ANHLAB 09:13
PROVIDERS: PCP Family Medicine; Visit Provider Family Medicine
DX: R53.83 Other fatigue (principal); D50.9 Iron deficiency anemia, unspecified; Z13.228 Encounter for screening for other metabolic disorders
CPT/HCPCS: 36415; 80053; 82728; 83540; 83550; 85025; 85055; 99212; G0463

== ENCOUNTER → 2022-10-19 15:46 | Outpatient (CLI) | payer OTHER, SELFPAY ==
--- NOTE | ~2022-10-19 | XR_ITS ---
XR chest 2V DATE: 10/19/2022 16:06 INDICATION: Acute and chronic respiratory failure TECHNIQUE: PA and lateral views COMPARISON: 10/05/2022 PA and lateral chest 05/08/2020 PA and lateral chest FINDINGS: Surgical clips overlie the medial left upper abdomen. Borderline heart size. There are patchy infiltrates and atelectasis in the mid and particularly lower lung zones, increased since 08/13/2022. Bilateral pneumonia is suspected, possibly superimposed upon chronic interstitial bi lateral pulmonary fibrosis. There is no apparent pleural effusion. No pneumothorax. Diffuse osteopenia.. IMPRESSION: Patchy bilateral mid and lower lung infiltrates and/or atelectasis, increased in severity since 08/13/2022. Bilateral pneumonia superimposed upon chronic interstitial changes is suspected Reviewed, dictated and finalized at location B. IMPRESSION: Patchy bilateral mid and lower lung infiltrates and/or atelectasis, increased in severity since 08/13/2022. Bilateral pneumonia superimposed upon c hronic interstitial changes is suspected
== END ==
PROVIDERS: PCP Family Medicine; Visit Provider Family Medicine
DX: J96.21 Acute and chronic respiratory failure with hypoxia (principal); R91.8 Other nonspecific abnormal finding of lung field
CPT/HCPCS: 71046

== ENCOUNTER 2022-10-22 13:33 | Outpatient (NON) | payer OTHER, SELFPAY ==
[2022-10-22 13:56] LABS: Appearance Urine Clear (Clear); Bilirubin Urine Negative (Negative); Blood Urine Negative (Negative); Color Urine Yellow (Yellow); Glucose Urine UA Negative (Negative); Ketones Urine Negative (Negative); Leukocyte Esterase Ur Negative LEU/UL (NEGATIVE); Nitrate Urine Negative (Negative); Protein Urine Negative (Negative); Specific Grav Ur 1.007 (1.001-1.035)
[2022-10-22 14:05] LABS: Add Urine Microscopic? NO
== END 2022-10-22 13:34 | disposition home or self-care (01) ==
LOC: ANHLAB 13:34
PROVIDERS: PCP Family Medicine; Visit Provider Family Medicine
DX: R30.0 Dysuria (principal)
CPT/HCPCS: 81003

== ENCOUNTER 2022-10-31 12:37 | Outpatient (CLI) | payer OTHER, SELFPAY ==
--- NOTE | 2022-10-31 13:08 | ECHO_ITS ---
Patient Info Name: Laure Zaragoza Age: 76 years : 1945 Gender: Female Ht: 69 in Wt: 170 lbs BSA: 1.95 m2 HR: 78 bpm BP: 136 / 65 mmHg Technical Quality: Fair Exam Date: 10/31/2022 1:26 PM Exam Location: [facility] Patient Status: Outpatient Admit Date: 10/31/2022 Staff Ordering Physician: Tariq Kang DO Note Keeper: Jaja Kearney RDCS Attending Provider: Tariq Kang DO Referring Physician: Jorge Luis PRYOR; Exam Type: CA echo doppler w bubble study Study Info Indications - cirhosis of the liver Complete two-dimensional, color flow and Doppler transthoracic echocardiogram is performed with agitated saline. Contrast/Agitated Saline Contrast/Ag. Saline: Agitated Saline Amount: 20.00 ml Administered By: Tariq Montana RDCS New IV Access: Inner Forearm and Left Summary 1. Left ventricular chamber dimension is normal. 2. Left ventricular systolic function is normal, estimated at 60-65%. 3. There is mild concentric increased left ventricular wall thickness. 4. The left ventricular diastolic function is grade I diastolic dysfunction. 5. E/e' 12 is mildly elevated. 6. Left atrial chamber dimension is moderately enlarged. 7. There is moderate aortic valve sclerosis. 8. There is mild aortic valve stenosis with a peak velocity of 260 cm/s, mean gradient of 16 mmHg, and aortic valve area of 1.7 cm2. 9. There is mild mitral valve regurgitation. 10. There is trace tricuspid valve regurgitation. 11. Mild pulmonary hypertension, estimated pulmonary arterial systolic pressure is 43 mmHg. Left Ventricle E/e' 12 is mildly elevated. Left ventricular chamber dimension is normal. Left ventricular systolic function is normal, estimated at 60-65%. There is mild concentric increased left ventricular wall thickness. The left ventricular diastolic function is grade I diastolic dysfunction. Right Ventricle Right ventricular chamber dimension is normal. Right ventricular systolic function is normal and with normal TAPSE 2.4 cm. Left Atria Left atrial chamber dimension is moderately enlarged. Right Atria Right atrial chamber dimension is normal. Atrial Septum Agitated saline injection with and without valsalva maneuver opacified right side cardiac chambers without shunt to left side cardiac chambers. Intact interatrial septum visualized by 2D and agitated saline imaging. Aortic Valve The aortic valve is trileaflet. There is moderate aortic valve sclerosis. There is mild aortic valve stenosis with a peak velocity of 260 cm/s, mean gradient of 16 mmHg, and aortic valve area of 1.7 cm2. There is no aortic valve regurgitation. Pulmonic Valve There is no pulmonic regurgitation. Mitral Valve There is no mitral valve stenosis. There is mild mitral valve regurgitation. Tricuspid Valve There is trace tricuspid valve regurgitation. Mild pulmonary hypertension, estimated pulmonary arterial systolic pressure is 43 mmHg. Pericardium/Pleural There is no pericardial effusion. Inferior Vena Cava Normal inferior vena cava with >50% collapse upon inspiration consistent with normal right atrial pressure, 5 mmHg. Aorta The aortic root size at the sinus of Valsalva is normal. Left Ventricular Outflow Tract Name Value Normal
== END 2022-10-31 12:38 | disposition home or self-care (01) ==
PROVIDERS: PCP Family Medicine; Visit Provider Family Medicine
DX: I08.3 Combined rheumatic disorders of mitral, aortic and tricuspid valves (principal); J90 Pleural effusion, not elsewhere classified; J96.21 Acute and chronic respiratory failure with hypoxia; K74.60 Unspecified cirrhosis of liver; I27.20 Pulmonary hypertension, unspecified
CPT/HCPCS: 93306; 96375

== ENCOUNTER 2023-02-01 09:28 | Outpatient (CLI) | payer OTHER, SELFPAY ==
[2023-02-01 10:10] LABS: Basophils Absolute Auto 0.1 K/mm3 (0.0-0.1); Basophils Percent Auto 1.3 % (0.2-1.2); Eosinophils Absolute Auto 0.4 K/mm3 (0-0.3); Eosinophils Percent Auto 9.5 % (0-4.4); Hematocrit 33.1 % (37.0-47.0); Hemoglobin 10.8 g/dL (12.0-15.0); Immature Granulocyte Absolute 0.01 K/mm3 (0.00-0.031); Immature Granulocyte Percent A 0.2 % (0-0.5); Immature Platelet Fraction Pct 3.9 % (0.9-11.2); Lymphocytes Absolute Auto 1.77 K/mm3 (0.9-3.2); Lymphocytes Percent Auto 39.1 % (18.3-44.2); Mean Corpuscular HGB Conc 32.6 g/dl (32-36); Mean Corpuscular Hemoglobin 32.9 pg (26-34); Mean Corpuscular Volume 100.9 fl (80-100); Mean Platelet Volume 10.8 fl (7.4-10.4); Monocytes Absolute Auto 0.2 K/mm3 (0.1-0.6); Monocytes Percent Auto 5.1 % (2.6-8.5); Neutrophils Percent Auto 44.8 % (45.5-73.1); Platelet Count Result 100 k/mm3 (150-375); Red Blood Count 3.28 M/mm3 (4.2-5.4); Red Cell Distribution Width 14.6 % (11.5-14.5); White Blood Count 4.5 K/mm3 (4.5-10.0)
[2023-02-01 10:46] LABS: Alanine Aminotransferase 21 U/L (6-35); Albumin Level 2.8 g/dL (3.5-5.1); Alkaline Phosphatase 226 U/L (38-126); Anion Gap 5 mmol/L (8-16); Aspartate Amino Transferase 48 U/L (14-36); Bilirubin,Total 5.2 mg/dL (0.2-1.3); Blood Urea Nitrogen 13 mg/dL (7-17); Carbon Dioxide 27 mmol/L (22-30); Chloride 104 mmol/L (98-107); Estimated Glomerular Filt Rate > 60; Glucose 273 mg/dL (65-110); Potassium 3.8 mmol/L (3.4-5.0); Sodium 136 mmol/L (137-145)
[2023-02-01 13:31] LABS: Hemoglobin A1C 6.5 % (<5.7)
[2023-02-01 13:35] LABS: Free T4 Free Thyroxine Reflex 1.27 ng/dL (0.78-2.19)
[2023-02-01 14:26] LABS: Total Triiodothyronine (T3) 1.02 NG/ML (0.97-1.69)
== END 2023-02-01 09:29 | disposition home or self-care (01) ==
PROVIDERS: PCP Family Medicine; Visit Provider Family Medicine
DX: E11.9 Type 2 diabetes mellitus without complications (principal); R53.83 Other fatigue; Z13.228 Encounter for screening for other metabolic disorders; Z13.29 Encounter for screening for other suspected endocrine disorder
CPT/HCPCS: 36415; 80053; 83036; 84439; 84443; 84480; 85025; 85055; 99212; G0463

== ENCOUNTER 2023-03-09 13:30 | Outpatient (NON) | payer OTHER, SELFPAY ==
[2023-03-09 14:05] LABS: Bacteria Urine 4+ /hpf; Need Manual Microscopic Reviewed; RBC Urine >100 /hpf (0-2); Squamous Epithelial Cell Urine Moderate /hpf (Few); WBC Urine >100 /hpf
[2023-03-09 14:12] LABS: Appearance Urine Cloudy (Clear); Bilirubin Urine Negative (Negative); Blood Urine 3+ (Negative); Color Urine Yellow (Yellow); Glucose Urine UA Trace mg/dL (Negative); Ketones Urine Negative (Negative); Leukocyte Esterase Ur 3+ LEU/UL (Negative); Nitrate Urine Negative (Negative); Protein Urine 1+ mg/dL (Negative); Specific Grav Ur 1.025 (1.001-1.035); Urobilinogen Urine 0.2 mg/dL (<2.0)
[2023-03-09 14:16] LABS: Add Urine Microscopic? YES
== END 2023-03-09 13:31 | disposition home or self-care (01) ==
PROVIDERS: PCP Family Medicine; Visit Provider Family Medicine
DX: R30.0 Dysuria (principal)
CPT/HCPCS: 81001; 87086; 87088